=== PATIENT | female | born 1945 | race Caucasian/White ===

== ENCOUNTER 2016-12-27 13:00 | Emergency (ER) | payer MEDICARE, MEDICAID ==
[~2016-12-27] VITALS: Ht 154.9 cm; Wt 110.0 kg
[~2016-12-27 13:00] MED LIST: ASPI81 PO; DIVA500T35 PO; DSS100 PO; LITH300C3 PO; LURA80 PO; PANT40TA25 PO; TERB12CR3 TP; TOPI25 PO; VITAD1000 PO
[2016-12-27 13:24] VITALS: BP 122/62
[2016-12-27 13:41] LABS: BASOPHILS # (AUTO) 0.07 K/uL (0.00-0.20); BASOPHILS % (AUTO) 1.2 % (0.0-2.0); EOSINOPHILS # (AUTO) 0.15 K/uL (0.00-0.70); EOSINOPHILS % (AUTO) 2.65 % (1.0-6.0); HEMATOCRIT 51.8 % (36-46); HEMOGLOBIN 16.7 g/dL (12.0-16.0); LYMPHOCYTES % (AUTO) 17.9 % (22.0-44.0); MEAN CORPUSCULAR HEMOGLOBIN 30.8 pg (26.0-34.0); MEAN CORPUSCULAR HGB CONC 32.3 G/dL (31.0-37.0); MEAN CORPUSCULAR VOLUME 95 fL (80-100); MONOCYTES # (AUTO) 0.6 K/uL (0.1-1.0); MONOCYTES % (AUTO) 9.7 % (2.0-9.0); NEUTROPHILS % (AUTO) 68.6 % (40.0-70.0); PLATELET COUNT (AUTO) 194 K/uL (150-450); RED BLOOD CELL COUNT(AUTO) 5.42 MIL/uL (4.00-5.20); RED CELL DISTRIBUTION WIDTH 14.6 % (11.5-14.5); WHITE BLOOD COUNT (AUTO) 5.8 K/uL (4.5-11.0)
[2016-12-27 14:01] LABS: ANION GAP 9 mmol/L (8-16); CALCIUM, TOTAL 8.8 mg/dL (8.8-10.5); CARBON DIOXIDE 29 mmol/L (22-29); CHLORIDE 104 mmol/L (98-107); CREATININE 0.83 mg/dL (0.60-1.30); GLOMERULAR FILTR. RATE CALC > 60 mL/min (>60); SODIUM SERUM 142 mmol/L (136-145); UREA NITROGEN, BLOOD 12 mg/dL (7-18)
[2016-12-27] MEDS ORDERED: ALBU8HFA IH (14:01)
[2016-12-27 14:06] LABS: ALANINE AMINOTRANSFERASE 17 U/L (12-78); ALBUMIN 3.4 g/dL (3.4-5.0); ASPARTATE AMINOTRANSFERASE 17 U/L (15-37); BILIRUBIN,TOTAL 0.7 mg/dL (0.1-1.0); TOTAL PROTEIN, SERUM 8.6 g/dL (6.4-8.2)
== END 2016-12-27 16:17 | disposition home or self-care (01) ==
LOC: EMS 13:02
DX: F41.9 Anxiety disorder, unspecified (principal); F31.9 Bipolar disorder, unspecified; I50.9 Heart failure, unspecified; F17.210 Nicotine dependence, cigarettes, uncomplicated; Z88.8 Allergy status to other drugs, medicaments and biological substances
CPT/HCPCS: 36415; 80053; 85025; 99284; G0480

== ENCOUNTER 2016-12-31 21:20 | Inpatient (IN) | payer OTHER, MEDICAID ==
[~2016-12-31] VITALS: Ht 154.9 cm; Wt 262.2 kg
[~2016-12-31 21:20] MED LIST changes: +ALBU8HFA IH; -ASPI81 PO; -DIVA500T35 PO; -DSS100 PO; -LITH300C3 PO; -LURA80 PO; -PANT40TA25 PO; -TERB12CR3 TP; -TOPI25 PO; -VITAD1000 PO
[2016-12-31 21:53] LABS: BASOPHILS % (AUTO) 0.3 % (0.0-2.0); EOSINOPHILS % (AUTO) 1.9 % (1.0-6.0); HEMATOCRIT 47.9 % (36-46); LYMPHOCYTES # (AUTO) 1.7 K/uL (1.0-4.8); LYMPHOCYTES % (AUTO) 24.6 % (22.0-44.0); MEAN CORPUSCULAR HEMOGLOBIN 31.1 pg (26.0-34.0); MEAN CORPUSCULAR HGB CONC 33.3 G/dL (31.0-37.0); MEAN CORPUSCULAR VOLUME 94 fL (80-100); MONOCYTES # (AUTO) 0.6 K/uL (0.1-1.0); MONOCYTES % (AUTO) 9.1 % (2.0-9.0); NEUTROPHILS # (AUTO) 4.5 K/uL (1.8-7.7); NEUTROPHILS % (AUTO) 64.1 % (40.0-70.0); PLATELET COUNT (AUTO) 219 K/uL (150-450); RED BLOOD CELL COUNT(AUTO) 5.13 MIL/uL (4.00-5.20); RED CELL DISTRIBUTION WIDTH 13.5 % (11.5-14.5)
[2016-12-31 22:02] LABS: GLUCOSE,POINT OF CARE 125 MG/DL (70-110)
[2016-12-31 22:07] LABS: ALANINE AMINOTRANSFERASE 19 U/L (12-78); ALBUMIN 3.3 g/dL (3.4-5.0); ANION GAP 6 mmol/L (8-16); ASPARTATE AMINOTRANSFERASE 24 U/L (15-37); BILIRUBIN,TOTAL 0.6 mg/dL (0.1-1.0); CALCIUM, TOTAL 8.8 mg/dL (8.8-10.5); CARBON DIOXIDE 32 mmol/L (22-29); CHLORIDE 103 mmol/L (98-107); CREATININE 1.09 mg/dL (0.60-1.30); GLOMERULAR FILTR. RATE CALC 49 mL/min (>60); POTASSIUM 4.1 mmol/L (3.5-5.1); SODIUM SERUM 141 mmol/L (136-145); TOTAL PROTEIN, SERUM 7.8 g/dL (6.4-8.2); UREA NITROGEN, BLOOD 14 mg/dL (7-18)
[2016-12-31] MEDS ORDERED: HALOPERIDOL 5 MG TABLET PO ONE (22:15)
[2016-12-31] MEDS ORDERED: LORazepam 2 MG TABLET PO ONE (22:15)
[2016-12-31] MEDS ORDERED: ChlorproMAZINE HCL 50 MG TABLET PO PRN (22:30)
[2016-12-31] MEDS ORDERED: ZOLPIDEM TARTRATE 10 MG TABLET PO PRN (22:30)
[2016-12-31 23:35] LABS: CHOL/HDL RATIO 3.8 (3.9-5.7); THYROID STIMULATING HORMONE 2.95 uIU/mL (0.36-3.74)
[2017-01-01 03:38] VITALS: BP 137/80
[2017-01-01 08:36] VITALS: BP 133/81
[2017-01-01] MEDS ORDERED: BACITRACIN 28.4 GM OINTMENT TP PRN (09:00)
[2017-01-01] MEDS ORDERED: MAGNESIUM HYDROXIDE SUSPENSION 30 ML UDCUP PO PRN (09:00)
[2017-01-01] MEDS ORDERED: ONDANSETRON HCL 4 MG TABLET PO PRN (09:00)
[2017-01-01] MEDS ORDERED: DEXTROSE 50%-WATER 25 GM/50 ML SYRINGE IVP PRN (09:00)
[2017-01-01] MEDS ORDERED: CloNIDine HCL 0.1 MG TABLET PO PRN (09:00)
[2017-01-01] MEDS ORDERED: MAG HYDROX/AL HYDROX/SIMETH ES 30 ML SUSPENSION UDCUP PO PRN (09:00)
[2017-01-01] MEDS ORDERED: LOPERAMIDE HCL 2 MG CAPSULE PO PRN (09:00)
[2017-01-01] MEDS ORDERED: BENZOCAINE/MENTHOL LOZENGE [8 LOZENGES/PACKET] MM PRN (09:00)
[2017-01-01] MEDS ORDERED: ACETAMINOPHEN 325 MG TABLET PO PRN (09:00)
[2017-01-01] MEDS ORDERED: ALBUTEROL SULFATE HFA 90 MCG/PUFF 8 GM INHALER IH PRN (09:00)
[2017-01-01] MEDS: OMEPRAZOLE 20 MG CAPSULE PO SCH (09:50)
[2017-01-01] MEDS: DIVALPROEX SODIUM 500 MG DR TABLET PO SCH ×2 (09:50→17:07)
[2017-01-01] MEDS: NYSTATIN 15 GM POWDER BOTTLE TP SCH ×2 (09:50→20:30)
[2017-01-01] MEDS: DOCUSATE SODIUM 100 MG CAPSULE PO SCH (09:50)
[2017-01-01] MEDS: CEPHALEXIN MONOHYDRATE 500 MG CAPSULE PO SCH ×3 (09:50→17:07)
[2017-01-01] MEDS: CHOLECALCIFEROL (VIT D3) 1,000 UNITS TABLET PO SCH (09:50)
[2017-01-01 11:23] LABS: GLUCOSE,POINT OF CARE 183 MG/DL (70-110)
[2017-01-01] MEDS: INSULIN ASPART 100 UNITS/ML SQ PRN ×2 (11:29→21:30)
[2017-01-01 16:47] VITALS: BP 116/67
[2017-01-01] MEDS: MetFORMIN HCL 500 MG TABLET PO SCH (17:07)
[2017-01-01 17:12] LABS: GLUCOSE,POINT OF CARE 95 MG/DL (70-110)
[2017-01-01] MEDS: ASENAPINE 5 MG SUBLINGUAL TABLET SL SCH (20:30)
[2017-01-01 20:37] LABS: GLUCOSE COMMENT 1 Received Meds; GLUCOSE,POINT OF CARE 148 MG/DL (70-110)
[2017-01-01] MEDS ORDERED: TOPIRAMATE 25 MG TABLET PO SCH (21:00)
[2017-01-02 02:32] VITALS: BP 126/83
[2017-01-02 05:57] LABS: GLUCOSE,POINT OF CARE 132 MG/DL (70-110)
[2017-01-02] MEDS: MetFORMIN HCL 500 MG TABLET PO SCH ×2 (06:41→17:20)
[2017-01-02] MEDS: NYSTATIN 15 GM POWDER BOTTLE TP SCH ×2 (08:18→17:20)
[2017-01-02] MEDS: OMEPRAZOLE 20 MG CAPSULE PO SCH (08:19)
[2017-01-02] MEDS: DOCUSATE SODIUM 100 MG CAPSULE PO SCH (08:19)
[2017-01-02] MEDS: CHOLECALCIFEROL (VIT D3) 1,000 UNITS TABLET PO SCH (08:19)
[2017-01-02] MEDS: DIVALPROEX SODIUM 500 MG DR TABLET PO SCH ×2 (08:19→17:20)
[2017-01-02] MEDS: CEPHALEXIN MONOHYDRATE 500 MG CAPSULE PO SCH ×3 (08:19→17:21)
[2017-01-02 08:31] VITALS: BP 138/92
[2017-01-02 11:02] LABS: GLUCOSE,POINT OF CARE 112 MG/DL (70-110)
[2017-01-02 16:27] VITALS: BP 142/76
[2017-01-02 17:28] LABS: GLUCOSE,POINT OF CARE 119 MG/DL (70-110)
[2017-01-02] MEDS: ASENAPINE 5 MG SUBLINGUAL TABLET SL SCH (20:03)
[2017-01-02] MEDS: TOPIRAMATE 100 MG TABLET PO SCH (20:03)
[2017-01-02 20:43] LABS: GLUCOSE,POINT OF CARE 153 MG/DL (70-110)
[2017-01-02] MEDS: INSULIN ASPART 100 UNITS/ML SQ PRN (21:45)
[2017-01-03 00:10] VITALS: BP 120/72
[2017-01-03] MEDS: IBUPROFEN 600 MG TABLET PO PRN ×2 (00:16→09:22)
[2017-01-03 05:57] LABS: GLUCOSE,POINT OF CARE 130 MG/DL (70-110)
[2017-01-03] MEDS: MetFORMIN HCL 500 MG TABLET PO SCH ×2 (06:40→16:47)
[2017-01-03] MEDS: CEPHALEXIN MONOHYDRATE 500 MG CAPSULE PO SCH ×3 (08:04→16:47)
[2017-01-03] MEDS: CHOLECALCIFEROL (VIT D3) 1,000 UNITS TABLET PO SCH (08:04)
[2017-01-03] MEDS: OMEPRAZOLE 20 MG CAPSULE PO SCH (08:04)
[2017-01-03] MEDS: DOCUSATE SODIUM 100 MG CAPSULE PO SCH (08:05)
[2017-01-03] MEDS: NYSTATIN 15 GM POWDER BOTTLE TP SCH ×2 (08:05→16:47)
[2017-01-03] MEDS: DIVALPROEX SODIUM 500 MG DR TABLET PO SCH ×2 (08:05→16:47)
[2017-01-03 08:22] VITALS: BP 142/88
[2017-01-03] MEDS: LORazepam 2 MG TABLET PO PRN (09:22)
[2017-01-03 10:57] LABS: GLUCOSE,POINT OF CARE 129 MG/DL (70-110)
[2017-01-03 17:23] VITALS: BP 142/81
[2017-01-03] MEDS: TOPIRAMATE 100 MG TABLET PO SCH (21:24)
[2017-01-03] MEDS: ASENAPINE 5 MG SUBLINGUAL TABLET SL SCH (21:24)
[2017-01-03 23:12] LABS: GLUCOSE,POINT OF CARE 130 MG/DL (70-110)
[2017-01-04 06:17] LABS: GLUCOSE,POINT OF CARE 123 MG/DL (70-110)
[2017-01-04] MEDS: MetFORMIN HCL 500 MG TABLET PO SCH ×2 (06:49→17:23)
[2017-01-04 07:03] VITALS: BP 117/69
[2017-01-04 08:00] VITALS: BP 140/81
[2017-01-04] MEDS: NYSTATIN 15 GM POWDER BOTTLE TP SCH ×2 (09:00→17:16)
[2017-01-04] MEDS: CARVEDILOL 3.125 MG TABLET PO SCH (09:16)
[2017-01-04] MEDS: DOCUSATE SODIUM 100 MG CAPSULE PO SCH (09:16)
[2017-01-04] MEDS: CHOLECALCIFEROL (VIT D3) 1,000 UNITS TABLET PO SCH (09:17)
[2017-01-04] MEDS: OMEPRAZOLE 20 MG CAPSULE PO SCH (09:17)
[2017-01-04] MEDS: DIVALPROEX SODIUM 500 MG DR TABLET PO SCH ×2 (09:17→17:15)
[2017-01-04] MEDS: CEPHALEXIN MONOHYDRATE 500 MG CAPSULE PO SCH ×3 (09:18→17:15)
[2017-01-04] MEDS: INSULIN ASPART 100 UNITS/ML SQ PRN ×2 (11:35→21:24)
[2017-01-04 11:39] LABS: GLUCOSE,POINT OF CARE 97 MG/DL (70-110)
[2017-01-04] MEDS: IBUPROFEN 600 MG TABLET PO PRN (12:40)
[2017-01-04 17:00] VITALS: BP 138/92
[2017-01-04 17:27] LABS: GLUCOSE,POINT OF CARE 113 MG/DL (70-110)
[2017-01-04] MEDS: TOPIRAMATE 100 MG TABLET PO SCH (21:08)
[2017-01-04] MEDS: ASENAPINE 5 MG SUBLINGUAL TABLET SL SCH (21:08)
[2017-01-04 21:22] LABS: GLUCOSE COMMENT 1 Received Meds; GLUCOSE,POINT OF CARE 121 MG/DL (70-110)
[2017-01-05 06:12] LABS: GLUCOSE,POINT OF CARE 113 MG/DL (70-110)
[2017-01-05 06:29] VITALS: BP 137/90
[2017-01-05] MEDS: MetFORMIN HCL 500 MG TABLET PO SCH ×2 (06:53→17:14)
[2017-01-05 08:30] VITALS: BP 147/88
[2017-01-05] MEDS: NYSTATIN 15 GM POWDER BOTTLE TP SCH ×2 (09:00→17:00)
[2017-01-05] MEDS: CARVEDILOL 3.125 MG TABLET PO SCH (09:41)
[2017-01-05] MEDS: CEPHALEXIN MONOHYDRATE 500 MG CAPSULE PO SCH ×3 (09:41→16:12)
[2017-01-05] MEDS: DIVALPROEX SODIUM 500 MG DR TABLET PO SCH ×2 (09:41→16:05)
[2017-01-05] MEDS: OMEPRAZOLE 20 MG CAPSULE PO SCH (09:41)
[2017-01-05] MEDS: DOCUSATE SODIUM 100 MG CAPSULE PO SCH (09:41)
[2017-01-05] MEDS: CHOLECALCIFEROL (VIT D3) 1,000 UNITS TABLET PO SCH (09:41)
[2017-01-05] MEDS: LORazepam 2 MG TABLET PO PRN (16:05)
[2017-01-05 16:24] VITALS: BP 124/71
[2017-01-05 16:44] LABS: GLUCOSE COMMENT 1 Received Meds; GLUCOSE,POINT OF CARE 128 MG/DL (70-110)
[2017-01-05] MEDS: TOPIRAMATE 100 MG TABLET PO SCH (20:04)
[2017-01-05] MEDS: ASENAPINE 5 MG SUBLINGUAL TABLET SL SCH (20:04)
[2017-01-06 05:58] LABS: GLUCOSE,POINT OF CARE 128 MG/DL (70-110)
[2017-01-06] MEDS: MetFORMIN HCL 500 MG TABLET PO SCH ×2 (07:18→17:30)
[2017-01-06] MEDS: NYSTATIN 15 GM POWDER BOTTLE TP SCH ×2 (08:07→17:05)
[2017-01-06] MEDS: DIVALPROEX SODIUM 500 MG DR TABLET PO SCH ×2 (08:07→16:11)
[2017-01-06] MEDS: OMEPRAZOLE 20 MG CAPSULE PO SCH (08:07)
[2017-01-06] MEDS: CARVEDILOL 3.125 MG TABLET PO SCH (08:07)
[2017-01-06] MEDS: DOCUSATE SODIUM 100 MG CAPSULE PO SCH (08:07)
[2017-01-06] MEDS: CHOLECALCIFEROL (VIT D3) 1,000 UNITS TABLET PO SCH (08:07)
[2017-01-06] MEDS: CEPHALEXIN MONOHYDRATE 500 MG CAPSULE PO SCH ×3 (08:07→16:11)
[2017-01-06 08:55] VITALS: BP 127/88
[2017-01-06] MEDS: LORazepam 2 MG TABLET PO PRN (16:11)
[2017-01-06 16:18] LABS: GLUCOSE COMMENT 1 Received Meds; GLUCOSE,POINT OF CARE 97 MG/DL (70-110)
[2017-01-06] MEDS: ASENAPINE 5 MG SUBLINGUAL TABLET SL SCH (21:00)
[2017-01-06] MEDS: TOPIRAMATE 100 MG TABLET PO SCH (21:00)
[2017-01-06 22:21] VITALS: BP 144/86
[2017-01-07 06:29] VITALS: BP 142/82
[2017-01-07] MEDS: MetFORMIN HCL 500 MG TABLET PO SCH ×2 (07:23→17:03)
[2017-01-07 07:58] LABS: GLUCOSE COMMENT 1 Received Meds; GLUCOSE,POINT OF CARE 102 MG/DL (70-110)
[2017-01-07] MEDS: DOCUSATE SODIUM 100 MG CAPSULE PO SCH (08:15)
[2017-01-07] MEDS: DIVALPROEX SODIUM 500 MG DR TABLET PO SCH ×2 (08:15→17:03)
[2017-01-07] MEDS: CARVEDILOL 3.125 MG TABLET PO SCH (08:15)
[2017-01-07] MEDS: MESALAMINE 400 MG DR CAPSULE PO SCH (08:15)
[2017-01-07] MEDS: CHOLECALCIFEROL (VIT D3) 1,000 UNITS TABLET PO SCH (08:15)
[2017-01-07] MEDS: CEPHALEXIN MONOHYDRATE 500 MG CAPSULE PO SCH ×3 (08:16→17:03)
[2017-01-07 08:35] VITALS: BP 134/98
[2017-01-07] MEDS: NYSTATIN 15 GM POWDER BOTTLE TP SCH ×2 (10:05→17:03)
[2017-01-07] MEDS: OMEPRAZOLE 20 MG CAPSULE PO SCH (10:05)
[2017-01-07 16:34] VITALS: BP 123/67
[2017-01-07] MEDS: TOPIRAMATE 100 MG TABLET PO SCH (20:42)
[2017-01-07] MEDS: ASENAPINE 5 MG SUBLINGUAL TABLET SL SCH (20:42)
[2017-01-08 05:00] LABS: GLUCOSE,POINT OF CARE 120 MG/DL (70-110)
[2017-01-08 06:46] VITALS: BP 138/67
[2017-01-08] MEDS: MetFORMIN HCL 500 MG TABLET PO SCH ×2 (07:30→16:47)
[2017-01-08 08:29] VITALS: BP 128/78
[2017-01-08] MEDS: MESALAMINE 400 MG DR CAPSULE PO SCH (10:16)
[2017-01-08] MEDS: CHOLECALCIFEROL (VIT D3) 1,000 UNITS TABLET PO SCH (10:16)
[2017-01-08] MEDS: DIVALPROEX SODIUM 500 MG DR TABLET PO SCH ×2 (10:16→16:47)
[2017-01-08] MEDS: CEPHALEXIN MONOHYDRATE 500 MG CAPSULE PO SCH ×3 (10:17→16:48)
[2017-01-08] MEDS: DOCUSATE SODIUM 100 MG CAPSULE PO SCH (10:17)
[2017-01-08] MEDS: CARVEDILOL 3.125 MG TABLET PO SCH (10:17)
[2017-01-08] MEDS: NYSTATIN 15 GM POWDER BOTTLE TP SCH ×2 (10:23→16:48)
[2017-01-08] MEDS: OMEPRAZOLE 20 MG CAPSULE PO SCH (10:23)
[2017-01-08 11:14] LABS: GLUCOSE,POINT OF CARE 126 MG/DL (70-110)
[2017-01-08 17:12] LABS: GLUCOSE,POINT OF CARE 101 MG/DL (70-110)
[2017-01-08 19:48] VITALS: BP 131/79
[2017-01-08] MEDS: TOPIRAMATE 100 MG TABLET PO SCH (20:19)
[2017-01-08] MEDS: ASENAPINE 5 MG SUBLINGUAL TABLET SL SCH (20:19)
[2017-01-09 03:20] VITALS: BP 157/98
[2017-01-09 06:09] LABS: GLUCOSE,POINT OF CARE 126 MG/DL (70-110)
[2017-01-09] MEDS: MetFORMIN HCL 500 MG TABLET PO SCH ×2 (07:02→17:23)
[2017-01-09 08:10] VITALS: BP 143/91
[2017-01-09] MEDS: MESALAMINE 400 MG DR CAPSULE PO SCH (09:11)
[2017-01-09] MEDS: DOCUSATE SODIUM 100 MG CAPSULE PO SCH (09:11)
[2017-01-09] MEDS: CHOLECALCIFEROL (VIT D3) 1,000 UNITS TABLET PO SCH (09:11)
[2017-01-09] MEDS: OMEPRAZOLE 20 MG CAPSULE PO SCH (09:11)
[2017-01-09] MEDS: CEPHALEXIN MONOHYDRATE 500 MG CAPSULE PO SCH ×2 (09:11→13:04)
[2017-01-09] MEDS: CARVEDILOL 3.125 MG TABLET PO SCH (09:11)
[2017-01-09] MEDS: DIVALPROEX SODIUM 500 MG DR TABLET PO SCH ×2 (09:11→17:13)
[2017-01-09] MEDS: NYSTATIN 15 GM POWDER BOTTLE TP SCH ×2 (09:12→17:13)
[2017-01-09] MEDS ORDERED: SULFAMETHOX/TRIMETH DS 800-160 MG/TABLET PO SCH (13:45)
[2017-01-09] MEDS ORDERED: CLINDAMYCIN HCL 150 MG CAPSULE PO SCH (13:45)
[2017-01-09] MEDS: INSULIN ASPART 100 UNITS/ML SQ PRN (17:17)
[2017-01-09 17:18] LABS: GLUCOSE COMMENT 1 Received Meds; GLUCOSE,POINT OF CARE 149 MG/DL (70-110)
[2017-01-09] MEDS: CLINDAMYCIN HCL 150 MG CAPSULE PO SCH (18:00)
[2017-01-09 19:07] VITALS: BP 140/93
[2017-01-09] MEDS: SULFAMETHOX/TRIMETH DS 800-160 MG/TABLET PO SCH (20:32)
[2017-01-09] MEDS: ASENAPINE 5 MG SUBLINGUAL TABLET SL SCH (20:32)
[2017-01-09] MEDS: TOPIRAMATE 100 MG TABLET PO SCH (20:32)
[2017-01-09] MEDS: HYDROCORTISONE 1% 30 GM CREAM TP PRN (20:33)
[2017-01-10] MEDS: CLINDAMYCIN HCL 150 MG CAPSULE PO SCH ×4 (00:35→18:45)
[2017-01-10 05:48] LABS: GLUCOSE COMMENT 1 FASTING; GLUCOSE,POINT OF CARE 134 MG/DL (70-110)
[2017-01-10 06:28] VITALS: BP 147/94
[2017-01-10] MEDS: MetFORMIN HCL 500 MG TABLET PO SCH ×2 (07:20→18:44)
[2017-01-10 08:30] VITALS: BP 145/82
[2017-01-10] MEDS: MESALAMINE 400 MG DR CAPSULE PO SCH (09:12)
[2017-01-10] MEDS: DIVALPROEX SODIUM 500 MG DR TABLET PO SCH ×2 (09:13→16:45)
[2017-01-10] MEDS: DOCUSATE SODIUM 100 MG CAPSULE PO SCH (09:13)
[2017-01-10] MEDS: OMEPRAZOLE 20 MG CAPSULE PO SCH (09:13)
[2017-01-10] MEDS: CHOLECALCIFEROL (VIT D3) 1,000 UNITS TABLET PO SCH (09:13)
[2017-01-10] MEDS: CARVEDILOL 3.125 MG TABLET PO SCH (09:13)
[2017-01-10] MEDS: SULFAMETHOX/TRIMETH DS 800-160 MG/TABLET PO SCH ×2 (09:13→20:27)
[2017-01-10] MEDS: NYSTATIN 15 GM POWDER BOTTLE TP SCH ×2 (09:13→16:45)
[2017-01-10 16:18] LABS: GLUCOSE COMMENT 1 Received Meds; GLUCOSE,POINT OF CARE 156 MG/DL (70-110)
[2017-01-10] MEDS: INSULIN ASPART 100 UNITS/ML SQ PRN (16:59)
[2017-01-10] MEDS: TOPIRAMATE 100 MG TABLET PO SCH (20:27)
[2017-01-10] MEDS: ASENAPINE 5 MG SUBLINGUAL TABLET SL SCH (20:27)
[2017-01-10 20:42] VITALS: BP 142/86
[2017-01-11] MEDS: CLINDAMYCIN HCL 150 MG CAPSULE PO SCH ×4 (01:30→18:45)
[2017-01-11 01:40] VITALS: BP 122/57
[2017-01-11] MEDS: HYDROCORTISONE 1% 30 GM CREAM TP PRN (03:38)
[2017-01-11 05:37] LABS: GLUCOSE COMMENT 1 Received Meds; GLUCOSE,POINT OF CARE 113 MG/DL (70-110)
[2017-01-11] MEDS: MetFORMIN HCL 500 MG TABLET PO SCH ×2 (08:03→17:00)
[2017-01-11 08:45] VITALS: BP 115/76
[2017-01-11] MEDS: NYSTATIN 15 GM POWDER BOTTLE TP SCH ×2 (09:00→17:00)
[2017-01-11] MEDS: SULFAMETHOX/TRIMETH DS 800-160 MG/TABLET PO SCH ×2 (09:20→20:48)
[2017-01-11] MEDS: CARVEDILOL 3.125 MG TABLET PO SCH (09:21)
[2017-01-11] MEDS: DOCUSATE SODIUM 100 MG CAPSULE PO SCH (09:21)
[2017-01-11] MEDS: MESALAMINE 400 MG DR CAPSULE PO SCH (09:21)
[2017-01-11] MEDS: OMEPRAZOLE 20 MG CAPSULE PO SCH (09:22)
[2017-01-11] MEDS: CHOLECALCIFEROL (VIT D3) 1,000 UNITS TABLET PO SCH (09:23)
[2017-01-11] MEDS: ASENAPINE 5 MG SUBLINGUAL TABLET SL SCH ×2 (09:23→20:48)
[2017-01-11 16:32] LABS: GLUCOSE,POINT OF CARE 141 MG/DL (70-110)
[2017-01-11] MEDS: IBUPROFEN 600 MG TABLET PO PRN (16:58)
[2017-01-11 17:02] VITALS: BP 129/69
[2017-01-11] MEDS: INSULIN ASPART 100 UNITS/ML SQ PRN (17:30)
[2017-01-11 18:02] VITALS: BP 118/62
[2017-01-11] MEDS: TOPIRAMATE 100 MG TABLET PO SCH (20:48)
[2017-01-12] MEDS: CLINDAMYCIN HCL 150 MG CAPSULE PO SCH ×4 (01:00→19:01)
[2017-01-12 03:39] VITALS: BP 110/62
[2017-01-12] MEDS: IBUPROFEN 600 MG TABLET PO PRN ×2 (03:42→19:20)
[2017-01-12 05:47] LABS: GLUCOSE,POINT OF CARE 156 MG/DL (70-110)
[2017-01-12] MEDS: HYDROCORTISONE 1% 30 GM CREAM TP PRN ×2 (06:29→19:20)
[2017-01-12] MEDS: INSULIN ASPART 100 UNITS/ML SQ PRN (07:04)
[2017-01-12] MEDS: MetFORMIN HCL 500 MG TABLET PO SCH ×2 (07:14→16:51)
[2017-01-12] MEDS: DOCUSATE SODIUM 100 MG CAPSULE PO SCH (08:26)
[2017-01-12] MEDS: CHOLECALCIFEROL (VIT D3) 1,000 UNITS TABLET PO SCH (08:26)
[2017-01-12] MEDS: OMEPRAZOLE 20 MG CAPSULE PO SCH (08:26)
[2017-01-12] MEDS: ASENAPINE 5 MG SUBLINGUAL TABLET SL SCH ×2 (08:27→20:28)
[2017-01-12] MEDS: SULFAMETHOX/TRIMETH DS 800-160 MG/TABLET PO SCH ×2 (08:28→20:28)
[2017-01-12] MEDS: CARVEDILOL 3.125 MG TABLET PO SCH (08:28)
[2017-01-12] MEDS: MESALAMINE 400 MG DR CAPSULE PO SCH (08:30)
[2017-01-12] MEDS: PETROLATUM,WHITE 71 GM JELLY TP PRN (08:31)
[2017-01-12] MEDS: NYSTATIN 15 GM POWDER BOTTLE TP SCH ×2 (08:31→16:51)
[2017-01-12 08:32] VITALS: BP 119/71
[2017-01-12 16:46] VITALS: BP 116/89
[2017-01-12 16:57] LABS: GLUCOSE COMMENT 1 Received Meds; GLUCOSE,POINT OF CARE 117 MG/DL (70-110)
[2017-01-12 19:22] VITALS: BP 123/75
[2017-01-12] MEDS: TOPIRAMATE 100 MG TABLET PO SCH (20:28)
[2017-01-13 04:56] VITALS: BP 129/78
[2017-01-13 05:37] LABS: GLUCOSE COMMENT 1 Received Meds; GLUCOSE,POINT OF CARE 109 MG/DL (70-110)
[2017-01-13] MEDS: CLINDAMYCIN HCL 150 MG CAPSULE PO SCH ×4 (06:25→17:47)
[2017-01-13] MEDS: MetFORMIN HCL 500 MG TABLET PO SCH ×2 (07:02→17:46)
[2017-01-13 08:05] VITALS: BP 135/79
[2017-01-13] MEDS: OMEPRAZOLE 20 MG CAPSULE PO SCH (09:08)
[2017-01-13] MEDS: DOCUSATE SODIUM 100 MG CAPSULE PO SCH (09:08)
[2017-01-13] MEDS: NYSTATIN 15 GM POWDER BOTTLE TP SCH ×2 (09:08→20:13)
[2017-01-13] MEDS: CHOLECALCIFEROL (VIT D3) 1,000 UNITS TABLET PO SCH (09:08)
[2017-01-13] MEDS: MESALAMINE 400 MG DR CAPSULE PO SCH (09:09)
[2017-01-13] MEDS: ASENAPINE 5 MG SUBLINGUAL TABLET SL SCH ×2 (09:09→20:48)
[2017-01-13] MEDS: ASPIRIN 81 MG EC TABLET PO SCH (09:10)
[2017-01-13] MEDS: CARVEDILOL 3.125 MG TABLET PO SCH (09:10)
[2017-01-13] MEDS: SULFAMETHOX/TRIMETH DS 800-160 MG/TABLET PO SCH ×2 (09:11→20:47)
[2017-01-13 16:37] VITALS: BP 112/73
[2017-01-13 16:37] LABS: GLUCOSE,POINT OF CARE 115 MG/DL (70-110)
[2017-01-13] MEDS: TOPIRAMATE 100 MG TABLET PO SCH (20:47)
[2017-01-14] MEDS: CLINDAMYCIN HCL 150 MG CAPSULE PO SCH ×4 (00:42→17:10)
[2017-01-14 03:38] VITALS: BP 133/66
[2017-01-14 06:12] LABS: GLUCOSE,POINT OF CARE 96 MG/DL (70-110)
[2017-01-14] MEDS: MetFORMIN HCL 500 MG TABLET PO SCH ×2 (07:22→17:10)
[2017-01-14] MEDS: CARVEDILOL 3.125 MG TABLET PO SCH (09:00)
[2017-01-14] MEDS: DOCUSATE SODIUM 100 MG CAPSULE PO SCH (09:05)
[2017-01-14] MEDS: SULFAMETHOX/TRIMETH DS 800-160 MG/TABLET PO SCH ×2 (09:05→20:27)
[2017-01-14] MEDS: MESALAMINE 400 MG DR CAPSULE PO SCH (09:06)
[2017-01-14] MEDS: ASPIRIN 81 MG EC TABLET PO SCH (09:06)
[2017-01-14] MEDS: CHOLECALCIFEROL (VIT D3) 1,000 UNITS TABLET PO SCH (09:08)
[2017-01-14] MEDS: OMEPRAZOLE 20 MG CAPSULE PO SCH (09:08)
[2017-01-14] MEDS: ASENAPINE 5 MG SUBLINGUAL TABLET SL SCH ×2 (09:08→20:27)
[2017-01-14 09:14] VITALS: BP 97/54
[2017-01-14] MEDS: IBUPROFEN 600 MG TABLET PO PRN (09:14)
[2017-01-14] MEDS: NYSTATIN 15 GM POWDER BOTTLE TP SCH ×2 (10:07→17:09)
[2017-01-14 10:42] VITALS: BP 128/71
[2017-01-14 16:44] LABS: GLUCOSE COMMENT 1 Received Meds; GLUCOSE,POINT OF CARE 124 MG/DL (70-110)
[2017-01-14] MEDS: PETROLATUM,WHITE 71 GM JELLY TP PRN (17:21)
[2017-01-14 18:59] VITALS: BP 123/76
[2017-01-14] MEDS: TOPIRAMATE 100 MG TABLET PO SCH (20:27)
[2017-01-15] MEDS: CLINDAMYCIN HCL 150 MG CAPSULE PO SCH ×4 (00:41→17:39)
[2017-01-15 05:35] LABS: GLUCOSE COMMENT 1 Received Meds; GLUCOSE,POINT OF CARE 112 MG/DL (70-110)
[2017-01-15 06:54] VITALS: BP 130/78
[2017-01-15 07:05] VITALS: BP 127/71
[2017-01-15] MEDS: MetFORMIN HCL 500 MG TABLET PO SCH ×2 (07:11→17:29)
[2017-01-15] MEDS: MESALAMINE 400 MG DR CAPSULE PO SCH (08:59)
[2017-01-15] MEDS: SULFAMETHOX/TRIMETH DS 800-160 MG/TABLET PO SCH ×2 (08:59→20:43)
[2017-01-15] MEDS: ASPIRIN 81 MG EC TABLET PO SCH (08:59)
[2017-01-15] MEDS: CARVEDILOL 3.125 MG TABLET PO SCH (08:59)
[2017-01-15] MEDS: OMEPRAZOLE 20 MG CAPSULE PO SCH (08:59)
[2017-01-15] MEDS: NYSTATIN 15 GM POWDER BOTTLE TP SCH ×2 (09:00→17:27)
[2017-01-15] MEDS: DOCUSATE SODIUM 100 MG CAPSULE PO SCH (09:00)
[2017-01-15] MEDS: ASENAPINE 5 MG SUBLINGUAL TABLET SL SCH ×2 (09:00→20:43)
[2017-01-15] MEDS: CHOLECALCIFEROL (VIT D3) 1,000 UNITS TABLET PO SCH (09:00)
[2017-01-15] MEDS: PETROLATUM,WHITE 71 GM JELLY TP PRN (09:10)
[2017-01-15 13:07] VITALS: BP 135/86
[2017-01-15] MEDS: IBUPROFEN 600 MG TABLET PO PRN (15:04)
[2017-01-15 17:42] LABS: GLUCOSE,POINT OF CARE 124 MG/DL (70-110)
[2017-01-15 18:52] VITALS: BP 135/81
[2017-01-15] MEDS ORDERED: TOPIRAMATE 100 MG TABLET PO SCH (21:00)
[2017-01-15] MEDS ORDERED: CEPHALEXIN MONOHYDRATE 500 MG CAPSULE PO ONE (22:30)
[2017-01-15] MEDS ORDERED: DOXYCYCLINE 100 MG CAPSULE PO ONE (22:30)
[2017-01-16 06:27] VITALS: BP 122/94
[2017-01-16 06:28] LABS: GLUCOSE,POINT OF CARE 98 MG/DL (70-110)
[2017-01-16] MEDS: MetFORMIN HCL 500 MG TABLET PO SCH (06:57)
[2017-01-16 08:15] VITALS: BP 104/54
[2017-01-16] MEDS ORDERED: TERBINAFINE HCL 1% 30 GM CREAM TP SCH (09:00)
[2017-01-16] MEDS ORDERED: DOXYCYCLINE 100 MG CAPSULE PO SCH (09:00)
[2017-01-16] MEDS: CHOLECALCIFEROL (VIT D3) 1,000 UNITS TABLET PO SCH (09:12)
[2017-01-16] MEDS: OMEPRAZOLE 20 MG CAPSULE PO SCH (09:12)
[2017-01-16] MEDS: DOCUSATE SODIUM 100 MG CAPSULE PO SCH (09:12)
[2017-01-16] MEDS: MESALAMINE 400 MG DR CAPSULE PO SCH (09:13)
[2017-01-16] MEDS: CEPHALEXIN MONOHYDRATE 500 MG CAPSULE PO SCH ×2 (09:13→12:23)
[2017-01-16] MEDS: ASENAPINE 5 MG SUBLINGUAL TABLET SL SCH (09:14)
[2017-01-16] MEDS: NYSTATIN 15 GM POWDER BOTTLE TP SCH (09:14)
[2017-01-16] MEDS: ASPIRIN 81 MG EC TABLET PO SCH (09:15)
[2017-01-16] MEDS: CARVEDILOL 3.125 MG TABLET PO SCH (09:15)
[2017-01-16] MEDS ORDERED: OMEP20 PO (12:41)
[2017-01-16] MEDS ORDERED: ASPI-1182 PO (12:41)
[2017-01-16] MEDS ORDERED: NYST15PO3 TP (12:41)
[2017-01-16] MEDS ORDERED: MESA400C2 PO (12:41)
[2017-01-16] MEDS ORDERED: DSS100 PO (12:41)
[2017-01-16] MEDS ORDERED: CARV3 PO (12:41)
[2017-01-16] MEDS ORDERED: VITAD1000 PO (12:41)
[2017-01-16] MEDS ORDERED: TOPI25 PO (12:41)
[2017-01-16] MEDS ORDERED: TERB30CR TP (12:41)
[2017-01-16] MEDS ORDERED: ASEN5TAB6 SL (12:41)
[2017-01-16] MEDS ORDERED: METF500T4 PO (12:41)
[2017-01-16 13:43] VITALS: BP 104/58
[2017-01-16] MEDS ORDERED: CeFAZolin 1 GM/DEXTROSE 50 ML IV SCH (14:00)
[2017-01-16] MEDS ORDERED: TOPIRAMATE 25 MG TABLET PO SCH (21:00)
[2017-01-17] MEDS ORDERED: TOPIRAMATE 25 MG TABLET PO SCH (21:00)
== END 2017-01-16 12:45 | disposition short-term general hospital (02) | DRG 885 ==
LOC: EMS 21:22 → 3EX 23:40
PROVIDERS: ADMIT Psychiatry & Neurology Psychiatry; ATTEND Psychiatry & Neurology Psychiatry
DX: F31.5 Bipolar disorder, current episode depressed, severe, with psychotic features (principal); E11.65 Type 2 diabetes mellitus with hyperglycemia; I50.9 Heart failure, unspecified; L03.115 Cellulitis of right lower limb; E66.01 Morbid (severe) obesity due to excess calories; L03.116 Cellulitis of left lower limb; R45.851 Suicidal ideations; F17.210 Nicotine dependence, cigarettes, uncomplicated; B35.6 Tinea cruris; G47.30 Sleep apnea, unspecified; R21 Rash and other nonspecific skin eruption; K21.9 Gastro-esophageal reflux disease without esophagitis; J44.9 Chronic obstructive pulmonary disease, unspecified; E55.9 Vitamin D deficiency, unspecified; K59.00 Constipation, unspecified; G47.00 Insomnia, unspecified; R26.9 Unspecified abnormalities of gait and mobility; B35.3 Tinea pedis; R00.0 Tachycardia, unspecified; R51 Headache; I25.10 Atherosclerotic heart disease of native coronary artery without angina pectoris; B35.4 Tinea corporis; Z91.19 Patient's noncompliance with other medical treatment and regimen; Z56.0 Unemployment, unspecified; Z91.041 Radiographic dye allergy status; Z79.899 Other long term (current) drug therapy; Z68.45 Body mass index [BMI] 70 or greater, adult; Z99.3 Dependence on wheelchair
CPT/HCPCS: 82962; 83036; 84439; 84443; 93970; 97161; 97165; 99285; G0480; J0690; J3535

== ENCOUNTER 2017-01-16 14:22 | Inpatient (IN) | payer MEDICARE, MEDICAID ==
[~2017-01-16] VITALS: Ht 154.9 cm; Wt 118.0 kg
[2017-01-16 14:04] VITALS: BP 104/58
[~2017-01-16 14:22] MED LIST changes: +ASEN5TAB6 SL; +ASPI-1182 PO; +CARV3 PO; +DSS100 PO; +MESA400C2 PO; +METF500T4 PO; +NYST15PO3 TP; +OMEP20 PO; +TERB30CR TP; +TOPI25 PO; +VITAD1000 PO
[2017-01-16 15:10] VITALS: BP 128/50
[2017-01-16] MEDS ORDERED: SODIUM CHLORIDE 0.9% 1,000 ML IV ONE (16:15)
[2017-01-16] MEDS ORDERED: CloNIDine HCL 0.1 MG TABLET PO PRN (16:30)
[2017-01-16] MEDS ORDERED: BENZOCAINE/MENTHOL LOZENGE [8 LOZENGES/PACKET] MM PRN (16:30)
[2017-01-16] MEDS ORDERED: ONDANSETRON HCL 4 MG TABLET PO PRN (16:30)
[2017-01-16] MEDS ORDERED: ALBUTEROL SULFATE HFA 90 MCG/PUFF 8 GM INHALER IH PRN (16:30)
[2017-01-16] MEDS ORDERED: LOPERAMIDE HCL 2 MG CAPSULE PO PRN (16:30)
[2017-01-16] MEDS ORDERED: BACITRACIN 28.4 GM OINTMENT TP PRN (16:30)
[2017-01-16] MEDS ORDERED: DEXTROSE 50%-WATER 25 GM/50 ML SYRINGE IVP PRN (16:30)
[2017-01-16] MEDS ORDERED: ACETAMINOPHEN 325 MG TABLET PO PRN (16:30)
[2017-01-16] MEDS ORDERED: ZOLPIDEM TARTRATE 10 MG TABLET PO PRN (16:30)
[2017-01-16] MEDS ORDERED: PETROLATUM,WHITE 71 GM JELLY TP PRN (16:30)
[2017-01-16] MEDS ORDERED: ChlorproMAZINE HCL 50 MG TABLET PO PRN (16:30)
[2017-01-16] MEDS ORDERED: CeFAZolin 1 GM/DEXTROSE 50 ML IV SCH (17:00)
[2017-01-16] MEDS: MetFORMIN HCL 500 MG TABLET PO SCH (17:23)
[2017-01-16] MEDS: INSULIN ASPART 100 UNITS/ML SQ PRN (17:28)
[2017-01-16 18:27] LABS: GLUCOMETER DEV NAME(LOC) 6N 2D; GLUCOSE,POINT OF CARE 136 MG/DL (70-110)
[2017-01-16 19:24] VITALS: BP 150/65
[2017-01-16] MEDS: HEPARIN SODIUM,PORCINE 5,000 UNITS/ML VIAL SQ SCH (20:22)
[2017-01-16] MEDS: ASENAPINE 5 MG SUBLINGUAL TABLET SL SCH (20:24)
[2017-01-16] MEDS: TERBINAFINE HCL 1% 30 GM CREAM TP SCH (21:00)
[2017-01-16] MEDS ORDERED: TOPIRAMATE 25 MG TABLET PO SCH (21:00)
[2017-01-16 21:08] LABS: GLUCOMETER DEV NAME(LOC) 6N 2D; GLUCOSE,POINT OF CARE 105 MG/DL (70-110)
[2017-01-16] MEDS: CLINDAMYCIN 900 MG/D5% WATER 50 ML IV SCH (22:21)
[2017-01-16 23:42] VITALS: BP 129/71
[2017-01-17] MEDS: CeFAZolin 2 GM/DEXTROSE 50 ML IV SCH ×3 (00:12→16:29)
[2017-01-17] MEDS: NYSTATIN 15 GM POWDER BOTTLE TP SCH ×3 (00:13→20:24)
[2017-01-17] MEDS: TERBINAFINE HCL 1% 30 GM CREAM TP SCH ×3 (00:13→20:24)
[2017-01-17 04:12] VITALS: BP 126/89
[2017-01-17] MEDS: CLINDAMYCIN 900 MG/D5% WATER 50 ML IV SCH ×3 (05:34→21:27)
[2017-01-17] MEDS: INSULIN ASPART 100 UNITS/ML SQ PRN ×3 (05:38→16:33)
[2017-01-17 05:52] LABS: GLUCOMETER DEV NAME(LOC) 6N 2D; GLUCOSE,POINT OF CARE 141 MG/DL (70-110)
[2017-01-17 07:15] LABS: BASOPHILS # (AUTO) 0.03 K/uL (0.00-0.20); BASOPHILS % (AUTO) 0.5 % (0.0-2.0); EOSINOPHILS # (AUTO) 0.25 K/uL (0.00-0.70); EOSINOPHILS % (AUTO) 3.45 % (1.0-6.0); HEMATOCRIT 42.3 % (36-46); HEMOGLOBIN 13.8 g/dL (12.0-16.0); LYMPHOCYTES # (AUTO) 1.6 K/uL (1.0-4.8); LYMPHOCYTES % (AUTO) 22.5 % (22.0-44.0); MEAN CORPUSCULAR HGB CONC 32.6 G/dL (31.0-37.0); MEAN CORPUSCULAR VOLUME 95 fL (80-100); NEUTROPHILS # (AUTO) 4.4 K/uL (1.8-7.7); NEUTROPHILS % (AUTO) 60.6 % (40.0-70.0); PLATELET COUNT (AUTO) 256 K/uL (150-450); RED BLOOD CELL COUNT(AUTO) 4.44 MIL/uL (4.00-5.20); RED CELL DISTRIBUTION WIDTH 13.4 % (11.5-14.5)
[2017-01-17 07:31] LABS: ALANINE AMINOTRANSFERASE 21 U/L (12-78); ALBUMIN 2.9 g/dL (3.4-5.0); ALKALINE PHOSPHATASE 64 U/L (46-116); ANION GAP 6 mmol/L (8-16); ASPARTATE AMINOTRANSFERASE 17 U/L (15-37); BILIRUBIN,TOTAL 0.4 mg/dL (0.1-1.0); CALCIUM, TOTAL 8.7 mg/dL (8.8-10.5); CARBON DIOXIDE 27 mmol/L (22-29); CHLORIDE 105 mmol/L (98-107); CREATININE 0.87 mg/dL (0.60-1.30); GLOMERULAR FILTR. RATE CALC > 60 mL/min (>60); GLUCOSE,RANDOM 109 mg/dL (70-110); PHOSPHORUS 4.5 mg/dL (2.5-4.9); POTASSIUM 4.2 mmol/L (3.5-5.1); SODIUM SERUM 138 mmol/L (136-145); TOTAL PROTEIN, SERUM 7.4 g/dL (6.4-8.2); UREA NITROGEN, BLOOD 20 mg/dL (7-18)
[2017-01-17 08:09] VITALS: BP 128/58
[2017-01-17] MEDS: MetFORMIN HCL 500 MG TABLET PO SCH ×2 (08:39→16:30)
[2017-01-17] MEDS: OMEPRAZOLE 20 MG CAPSULE PO SCH (08:39)
[2017-01-17] MEDS: HEPARIN SODIUM,PORCINE 5,000 UNITS/ML VIAL SQ SCH ×2 (08:40→20:24)
[2017-01-17] MEDS: MESALAMINE 400 MG DR CAPSULE PO SCH (08:40)
[2017-01-17] MEDS: DOCUSATE SODIUM 100 MG CAPSULE PO SCH (08:40)
[2017-01-17] MEDS: IBUPROFEN 600 MG TABLET PO PRN (08:40)
[2017-01-17] MEDS: ASPIRIN 81 MG EC TABLET PO SCH (08:40)
[2017-01-17] MEDS: CARVEDILOL 3.125 MG TABLET PO SCH (08:40)
[2017-01-17] MEDS: HYDROCORTISONE 1% 30 GM CREAM TP PRN (08:41)
[2017-01-17] MEDS: ASENAPINE 5 MG SUBLINGUAL TABLET SL SCH ×2 (08:41→20:21)
[2017-01-17] MEDS: CHOLECALCIFEROL (VIT D3) 1,000 UNITS TABLET PO SCH (10:52)
[2017-01-17 17:27] LABS: GLUCOMETER DEV NAME(LOC) 6N 2D; GLUCOSE,POINT OF CARE 109 MG/DL (70-110)
[2017-01-17 17:38] LABS: GLUCOMETER DEV NAME(LOC) PVLAB130; GLUCOSE,POINT OF CARE 96 MG/DL (70-110)
[2017-01-17 20:00] VITALS: BP 133/66
[2017-01-17] MEDS ORDERED: TOPIRAMATE 25 MG TABLET PO SCH (21:00)
[2017-01-17 22:12] LABS: GLUCOMETER DEV NAME(LOC) PVLAB130; GLUCOSE,POINT OF CARE 116 MG/DL (70-110)
[2017-01-18 00:06] VITALS: BP 124/64
[2017-01-18] MEDS: CeFAZolin 2 GM/DEXTROSE 50 ML IV SCH ×3 (00:46→17:39)
[2017-01-18] MEDS: IBUPROFEN 600 MG TABLET PO PRN (02:28)
[2017-01-18 05:00] VITALS: BP 122/68
[2017-01-18] MEDS: CLINDAMYCIN 900 MG/D5% WATER 50 ML IV SCH ×3 (05:40→22:28)
[2017-01-18 06:09] LABS: GLUCOMETER DEV NAME(LOC) 6N 2D; GLUCOSE,POINT OF CARE 108 MG/DL (70-110)
[2017-01-18 07:19] VITALS: BP 126/74
[2017-01-18 07:55] LABS: BASOPHILS # (AUTO) 0.02 K/uL (0.00-0.20); BASOPHILS % (AUTO) 0.2 % (0.0-2.0); EOSINOPHILS # (AUTO) 0.29 K/uL (0.00-0.70); EOSINOPHILS % (AUTO) 4.13 % (1.0-6.0); HEMOGLOBIN 13.1 g/dL (12.0-16.0); LYMPHOCYTES # (AUTO) 1.3 K/uL (1.0-4.8); LYMPHOCYTES % (AUTO) 18.7 % (22.0-44.0); MEAN CORPUSCULAR HEMOGLOBIN 31.2 pg (26.0-34.0); MEAN CORPUSCULAR HGB CONC 32.7 G/dL (31.0-37.0); MEAN CORPUSCULAR VOLUME 95 fL (80-100); MONOCYTES % (AUTO) 14.2 % (2.0-9.0); NEUTROPHILS # (AUTO) 4.5 K/uL (1.8-7.7); NEUTROPHILS % (AUTO) 62.7 % (40.0-70.0); PLATELET COUNT (AUTO) 231 K/uL (150-450); RED BLOOD CELL COUNT(AUTO) 4.19 MIL/uL (4.00-5.20); RED CELL DISTRIBUTION WIDTH 13.5 % (11.5-14.5)
[2017-01-18] MEDS: ASPIRIN 81 MG EC TABLET PO SCH (08:24)
[2017-01-18] MEDS: ASENAPINE 5 MG SUBLINGUAL TABLET SL SCH (08:24)
[2017-01-18] MEDS: MESALAMINE 400 MG DR CAPSULE PO SCH (08:24)
[2017-01-18] MEDS: DOCUSATE SODIUM 100 MG CAPSULE PO SCH (08:25)
[2017-01-18] MEDS: CARVEDILOL 3.125 MG TABLET PO SCH (08:25)
[2017-01-18] MEDS: OMEPRAZOLE 20 MG CAPSULE PO SCH (08:25)
[2017-01-18] MEDS: HEPARIN SODIUM,PORCINE 5,000 UNITS/ML VIAL SQ SCH ×2 (08:25→19:48)
[2017-01-18] MEDS: MetFORMIN HCL 500 MG TABLET PO SCH ×2 (08:25→17:39)
[2017-01-18] MEDS: CHOLECALCIFEROL (VIT D3) 1,000 UNITS TABLET PO SCH (08:26)
[2017-01-18 08:28] LABS: ALANINE AMINOTRANSFERASE 15 U/L (12-78); ALBUMIN 2.7 g/dL (3.4-5.0); ALKALINE PHOSPHATASE 61 U/L (46-116); ANION GAP 6 mmol/L (8-16); ASPARTATE AMINOTRANSFERASE 16 U/L (15-37); BILIRUBIN,TOTAL 0.3 mg/dL (0.1-1.0); CALCIUM, TOTAL 8.6 mg/dL (8.8-10.5); CARBON DIOXIDE 28 mmol/L (22-29); CHLORIDE 105 mmol/L (98-107); CREATININE 0.81 mg/dL (0.60-1.30); GLOMERULAR FILTR. RATE CALC > 60 mL/min (>60); GLUCOSE,RANDOM 110 mg/dL (70-110); PHOSPHORUS 5.1 mg/dL (2.5-4.9); POTASSIUM 3.7 mmol/L (3.5-5.1); SODIUM SERUM 139 mmol/L (136-145); TOTAL PROTEIN, SERUM 6.9 g/dL (6.4-8.2); UREA NITROGEN, BLOOD 22 mg/dL (7-18)
[2017-01-18] MEDS: NYSTATIN 15 GM POWDER BOTTLE TP SCH ×2 (08:30→19:49)
[2017-01-18] MEDS: HYDROCORTISONE 1% 30 GM CREAM TP PRN (08:31)
[2017-01-18] MEDS: TERBINAFINE HCL 1% 30 GM CREAM TP SCH ×2 (08:31→19:49)
[2017-01-18 10:37] LABS: PROTHROMBIN TIME 10.6 SEC (9.4-11.6)
[2017-01-18 12:08] LABS: GLUCOMETER DEV NAME(LOC) 6N 2D; GLUCOSE,POINT OF CARE 83 MG/DL (70-110)
[2017-01-18 15:28] VITALS: BP 121/93
[2017-01-18] MEDS ORDERED: HEPARIN SODIUM 1000 UNITS/NS 500 ML ONE (15:41)
[2017-01-18 18:03] LABS: GLUCOMETER DEV NAME(LOC) PVLAB130; GLUCOSE,POINT OF CARE 85 MG/DL (70-110)
[2017-01-18 19:20] VITALS: BP 125/66
[2017-01-18] MEDS: ASENAPINE 10 MG SUBLINGUAL TABLET SL SCH (19:48)
[2017-01-18 23:12] LABS: GLUCOMETER DEV NAME(LOC) PVLAB130; GLUCOSE,POINT OF CARE 105 MG/DL (70-110)
[2017-01-19] MEDS ORDERED: SODIUM CHLORIDE 0.9% 500 ML IV ONE (00:05)
[2017-01-19 00:15] VITALS: BP 114/50
[2017-01-19] MEDS: CeFAZolin 2 GM/DEXTROSE 50 ML IV SCH ×3 (00:18→18:36)
[2017-01-19] MEDS: LORazepam 2 MG TABLET PO PRN ×3 (02:48→21:50)
[2017-01-19 05:00] VITALS: BP 142/93
[2017-01-19] MEDS: CLINDAMYCIN 900 MG/D5% WATER 50 ML IV SCH ×3 (06:08→22:58)
[2017-01-19 06:52] LABS: GLUCOMETER DEV NAME(LOC) 6N 2D; GLUCOSE,POINT OF CARE 96 MG/DL (70-110)
[2017-01-19 08:40] VITALS: BP 114/53
[2017-01-19] MEDS: MESALAMINE 400 MG DR CAPSULE PO SCH (09:34)
[2017-01-19] MEDS: DOCUSATE SODIUM 100 MG CAPSULE PO SCH (09:34)
[2017-01-19] MEDS: ASENAPINE 5 MG SUBLINGUAL TABLET SL SCH (09:34)
[2017-01-19] MEDS: CARVEDILOL 3.125 MG TABLET PO SCH (09:34)
[2017-01-19] MEDS: CHOLECALCIFEROL (VIT D3) 1,000 UNITS TABLET PO SCH (09:34)
[2017-01-19] MEDS: MetFORMIN HCL 500 MG TABLET PO SCH ×2 (09:34→18:36)
[2017-01-19] MEDS: OMEPRAZOLE 20 MG CAPSULE PO SCH (09:34)
[2017-01-19] MEDS: ASPIRIN 81 MG EC TABLET PO SCH (09:34)
[2017-01-19] MEDS: TERBINAFINE HCL 1% 30 GM CREAM TP SCH ×2 (09:35→21:49)
[2017-01-19] MEDS: NYSTATIN 15 GM POWDER BOTTLE TP SCH ×2 (09:35→21:49)
[2017-01-19] MEDS: HEPARIN SODIUM,PORCINE 5,000 UNITS/ML VIAL SQ SCH ×2 (09:35→21:49)
[2017-01-19 11:04] VITALS: BP 107/68
[2017-01-19 12:07] LABS: GLUCOMETER DEV NAME(LOC) 6N 2D; GLUCOSE,POINT OF CARE 92 MG/DL (70-110)
[2017-01-19 15:00] VITALS: BP 124/61
[2017-01-19 18:48] LABS: GLUCOMETER DEV NAME(LOC) 6N 1E; GLUCOSE,POINT OF CARE 101 MG/DL (70-110)
[2017-01-19 19:47] VITALS: BP 150/87
[2017-01-19] MEDS: ASENAPINE 10 MG SUBLINGUAL TABLET SL SCH (21:49)
[2017-01-20] VITALS (7 sets, daily range): BP systolic 115–136; BP diastolic 65–76
[2017-01-20] MEDS: CeFAZolin 2 GM/DEXTROSE 50 ML IV SCH ×3 (00:59→16:45)
[2017-01-20 03:12] LABS: GLUCOMETER DEV NAME(LOC) 6N 1E; GLUCOSE,POINT OF CARE 105 MG/DL (70-110)
[2017-01-20] MEDS: MetFORMIN HCL 500 MG TABLET PO SCH ×2 (07:45→18:20)
[2017-01-20] MEDS: LORazepam 2 MG TABLET PO PRN ×2 (07:46→20:07)
[2017-01-20] MEDS: DOCUSATE SODIUM 100 MG CAPSULE PO SCH (07:48)
[2017-01-20] MEDS: ASPIRIN 81 MG EC TABLET PO SCH (07:48)
[2017-01-20] MEDS: OMEPRAZOLE 20 MG CAPSULE PO SCH (07:48)
[2017-01-20] MEDS: HEPARIN SODIUM,PORCINE 5,000 UNITS/ML VIAL SQ SCH ×2 (07:49→20:07)
[2017-01-20] MEDS: CHOLECALCIFEROL (VIT D3) 1,000 UNITS TABLET PO SCH (07:49)
[2017-01-20] MEDS: CARVEDILOL 3.125 MG TABLET PO SCH (07:49)
[2017-01-20] MEDS: ASENAPINE 5 MG SUBLINGUAL TABLET SL SCH (07:53)
[2017-01-20] MEDS: MESALAMINE 400 MG DR CAPSULE PO SCH (07:53)
[2017-01-20] MEDS: HYDROCORTISONE 1% 30 GM CREAM TP PRN (07:54)
[2017-01-20] MEDS: TERBINAFINE HCL 1% 30 GM CREAM TP SCH ×2 (07:55→20:08)
[2017-01-20] MEDS: NYSTATIN 15 GM POWDER BOTTLE TP SCH ×2 (07:55→20:08)
[2017-01-20 09:27] LABS: GLUCOMETER DEV NAME(LOC) 6N 1E; GLUCOSE,POINT OF CARE 106 MG/DL (70-110)
[2017-01-20 11:27] LABS: GLUCOMETER DEV NAME(LOC) 6N 1E; GLUCOSE,POINT OF CARE 81 MG/DL (70-110)
[2017-01-20 18:36] LABS: GLUCOMETER DEV NAME(LOC) 6N 2D; GLUCOSE,POINT OF CARE 110 MG/DL (70-110)
[2017-01-20] MEDS: ASENAPINE 10 MG SUBLINGUAL TABLET SL SCH (20:07)
[2017-01-21] MEDS: CeFAZolin 2 GM/DEXTROSE 50 ML IV SCH ×3 (00:27→17:10)
[2017-01-21 01:27] LABS: GLUCOMETER DEV NAME(LOC) 6N 2D; GLUCOSE,POINT OF CARE 96 MG/DL (70-110)
[2017-01-21] MEDS: IBUPROFEN 600 MG TABLET PO PRN ×2 (04:15→22:50)
[2017-01-21 05:27] VITALS: BP 90/56
[2017-01-21 05:56] LABS: BASOPHILS % (AUTO) 0.3 % (0.0-2.0); EOSINOPHILS % (AUTO) 4.2 % (1.0-6.0); HEMATOCRIT 38.8 % (36-46); HEMOGLOBIN 13.1 g/dL (12.0-16.0); LYMPHOCYTES # (AUTO) 1.7 K/uL (1.0-4.8); LYMPHOCYTES % (AUTO) 23.4 % (22.0-44.0); MEAN CORPUSCULAR HEMOGLOBIN 31.7 pg (26.0-34.0); MEAN CORPUSCULAR HGB CONC 33.8 G/dL (31.0-37.0); MEAN CORPUSCULAR VOLUME 94 fL (80-100); MONOCYTES # (AUTO) 0.6 K/uL (0.1-1.0); MONOCYTES % (AUTO) 8.6 % (2.0-9.0); NEUTROPHILS # (AUTO) 4.7 K/uL (1.8-7.7); NEUTROPHILS % (AUTO) 63.5 % (40.0-70.0); PLATELET COUNT (AUTO) 219 K/uL (150-450); RED BLOOD CELL COUNT(AUTO) 4.13 MIL/uL (4.00-5.20)
[2017-01-21 06:38] LABS: ALANINE AMINOTRANSFERASE 13 U/L (12-78); ALBUMIN 2.8 g/dL (3.4-5.0); ALKALINE PHOSPHATASE 59 U/L (46-116); ANION GAP 6 mmol/L (8-16); ASPARTATE AMINOTRANSFERASE 16 U/L (15-37); BILIRUBIN,TOTAL 0.4 mg/dL (0.1-1.0); CALCIUM, TOTAL 8.7 mg/dL (8.8-10.5); CARBON DIOXIDE 29 mmol/L (22-29); CHLORIDE 103 mmol/L (98-107); CREATININE 0.86 mg/dL (0.60-1.30); GLOMERULAR FILTR. RATE CALC > 60 mL/min (>60); GLUCOSE,RANDOM 171 mg/dL (70-110); PHOSPHORUS 4.6 mg/dL (2.5-4.9); POTASSIUM 3.9 mmol/L (3.5-5.1); SODIUM SERUM 138 mmol/L (136-145); TOTAL PROTEIN, SERUM 6.8 g/dL (6.4-8.2); UREA NITROGEN, BLOOD 18 mg/dL (7-18)
[2017-01-21 06:48] LABS: GLUCOMETER DEV NAME(LOC) 6N 2D; GLUCOSE,POINT OF CARE 132 MG/DL (70-110)
[2017-01-21 08:30] VITALS: BP 119/54
[2017-01-21] MEDS: DOCUSATE SODIUM 100 MG CAPSULE PO SCH (09:09)
[2017-01-21] MEDS: MetFORMIN HCL 500 MG TABLET PO SCH ×2 (09:09→17:10)
[2017-01-21] MEDS: HEPARIN SODIUM,PORCINE 5,000 UNITS/ML VIAL SQ SCH ×2 (09:09→20:32)
[2017-01-21] MEDS: CARVEDILOL 3.125 MG TABLET PO SCH (09:09)
[2017-01-21] MEDS: MESALAMINE 400 MG DR CAPSULE PO SCH (09:10)
[2017-01-21] MEDS: CHOLECALCIFEROL (VIT D3) 1,000 UNITS TABLET PO SCH (09:10)
[2017-01-21] MEDS: ASPIRIN 81 MG EC TABLET PO SCH (09:10)
[2017-01-21] MEDS: OMEPRAZOLE 20 MG CAPSULE PO SCH (09:12)
[2017-01-21] MEDS: ASENAPINE 5 MG SUBLINGUAL TABLET SL SCH (09:13)
[2017-01-21] MEDS: TERBINAFINE HCL 1% 30 GM CREAM TP SCH ×2 (09:16→20:32)
[2017-01-21] MEDS: NYSTATIN 15 GM POWDER BOTTLE TP SCH ×2 (09:16→20:33)
[2017-01-21 12:15] VITALS: BP 114/60
[2017-01-21 13:02] LABS: GLUCOMETER DEV NAME(LOC) 6N 1E; GLUCOSE,POINT OF CARE 90 MG/DL (70-110)
[2017-01-21] MEDS: LORazepam 2 MG TABLET PO PRN ×2 (15:59→21:11)
[2017-01-21 16:15] VITALS: BP 116/52
[2017-01-21 17:27] LABS: GLUCOMETER DEV NAME(LOC) 6N 1E; GLUCOSE,POINT OF CARE 75 MG/DL (70-110)
[2017-01-21 19:20] VITALS: BP 102/50
[2017-01-21] MEDS: ASENAPINE 10 MG SUBLINGUAL TABLET SL SCH (20:31)
[2017-01-21 23:37] LABS: GLUCOMETER DEV NAME(LOC) 6N 1E; GLUCOSE,POINT OF CARE 115 MG/DL (70-110)
[2017-01-22 00:15] VITALS: BP 133/58
[2017-01-22] MEDS: CeFAZolin 2 GM/DEXTROSE 50 ML IV SCH ×3 (00:53→17:27)
[2017-01-22 05:05] VITALS: BP 110/73
[2017-01-22 06:32] LABS: GLUCOMETER DEV NAME(LOC) 6N 1E; GLUCOSE,POINT OF CARE 106 MG/DL (70-110)
[2017-01-22] MEDS ORDERED: SODIUM CHLORIDE 0.9% 250 ML IV ONE (06:38)
[2017-01-22 08:15] VITALS: BP 104/68
[2017-01-22] MEDS: HEPARIN SODIUM,PORCINE 5,000 UNITS/ML VIAL SQ SCH ×2 (08:35→20:24)
[2017-01-22] MEDS: ASENAPINE 5 MG SUBLINGUAL TABLET SL SCH (08:35)
[2017-01-22] MEDS: DOCUSATE SODIUM 100 MG CAPSULE PO SCH (08:35)
[2017-01-22] MEDS: CHOLECALCIFEROL (VIT D3) 1,000 UNITS TABLET PO SCH (08:35)
[2017-01-22] MEDS: CARVEDILOL 3.125 MG TABLET PO SCH (08:35)
[2017-01-22] MEDS: OMEPRAZOLE 20 MG CAPSULE PO SCH (08:35)
[2017-01-22] MEDS: MetFORMIN HCL 500 MG TABLET PO SCH ×2 (08:35→17:34)
[2017-01-22] MEDS: MESALAMINE 400 MG DR CAPSULE PO SCH (08:36)
[2017-01-22] MEDS: ASPIRIN 81 MG EC TABLET PO SCH (08:36)
[2017-01-22] MEDS: NYSTATIN 15 GM POWDER BOTTLE TP SCH ×2 (08:38→20:26)
[2017-01-22] MEDS: HYDROCORTISONE 1% 30 GM CREAM TP PRN (08:38)
[2017-01-22] MEDS: TERBINAFINE HCL 1% 30 GM CREAM TP SCH ×2 (08:39→20:29)
[2017-01-22 11:43] LABS: GLUCOMETER DEV NAME(LOC) 6N 1E; GLUCOSE,POINT OF CARE 88 MG/DL (70-110)
[2017-01-22 12:19] VITALS: BP 113/65
[2017-01-22] MEDS: LORazepam 2 MG TABLET PO PRN (12:45)
[2017-01-22] MEDS: IBUPROFEN 600 MG TABLET PO PRN (12:48)
[2017-01-22 19:07] LABS: GLUCOMETER DEV NAME(LOC) 6N 1E; GLUCOSE,POINT OF CARE 104 MG/DL (70-110)
[2017-01-22 19:41] VITALS: BP 101/51
[2017-01-22] MEDS: ASENAPINE 10 MG SUBLINGUAL TABLET SL SCH (20:24)
== END 2017-01-22 21:50 | DRG 603 ==
LOC: 6N 14:40
PROVIDERS: ADMIT Internal Medicine; ATTEND Internal Medicine
PROC: 02HV33Z Insertion of Infusion Device into Superior Vena Cava, Percutaneous Approach (ICD-10-PCS; principal; 2017-01-18)
DX: L03.115 Cellulitis of right lower limb (principal); E11.65 Type 2 diabetes mellitus with hyperglycemia; E66.01 Morbid (severe) obesity due to excess calories; J44.9 Chronic obstructive pulmonary disease, unspecified; B35.3 Tinea pedis; F17.200 Nicotine dependence, unspecified, uncomplicated; B35.6 Tinea cruris; Z68.42 Body mass index [BMI] 45.0-49.9, adult; G47.33 Obstructive sleep apnea (adult) (pediatric); L03.116 Cellulitis of left lower limb; E55.9 Vitamin D deficiency, unspecified; F31.9 Bipolar disorder, unspecified; I10 Essential (primary) hypertension; G47.00 Insomnia, unspecified; K21.9 Gastro-esophageal reflux disease without esophagitis; K59.00 Constipation, unspecified; Z99.3 Dependence on wheelchair; Z88.8 Allergy status to other drugs, medicaments and biological substances
CPT/HCPCS: 36245; 36569; 76937; 82962; 83735; 84100; J0690; J1644; J3490; J7030; J7040; J7050

== ENCOUNTER 2017-01-28 15:58 | Inpatient (IN) | payer MEDICARE, OTHER ==
[~2017-01-28] VITALS: Ht 154.9 cm; Wt 119.3 kg
[~2017-01-28 15:58] MED LIST changes: -ALBU8HFA IH; -TOPI25 PO
[2017-01-28 16:37] LABS: GLUCOSE,POINT OF CARE 115 MG/DL (70-110)
[2017-01-28] MEDS ORDERED: FURO20 PO (17:11)
[2017-01-28] MEDS ORDERED: CEFA2PLA9 IVP (17:11)
[2017-01-28] MEDS ORDERED: LORA0.5T2 PO (17:11)
[2017-01-28 17:40] LABS: BASOPHILS # (AUTO) 0.08 K/uL (0.00-0.20); BASOPHILS % (AUTO) 1.2 % (0.0-2.0); EOSINOPHILS # (AUTO) 0.59 K/uL (0.00-0.70); EOSINOPHILS % (AUTO) 7.98 % (1.0-6.0); HEMATOCRIT 40.5 % (36-46); HEMOGLOBIN 13.3 g/dL (12.0-16.0); LYMPHOCYTES # (AUTO) 1.6 K/uL (1.0-4.8); LYMPHOCYTES % (AUTO) 21.2 % (22.0-44.0); MEAN CORPUSCULAR HEMOGLOBIN 31.4 pg (26.0-34.0); MEAN CORPUSCULAR VOLUME 95 fL (80-100); MONOCYTES # (AUTO) 0.7 K/uL (0.1-1.0); MONOCYTES % (AUTO) 9.6 % (2.0-9.0); NEUTROPHILS # (AUTO) 4.4 K/uL (1.8-7.7); PLATELET COUNT (AUTO) 181 K/uL (150-450); RED BLOOD CELL COUNT(AUTO) 4.24 MIL/uL (4.00-5.20); RED CELL DISTRIBUTION WIDTH 14.3 % (11.5-14.5); WHITE BLOOD COUNT (AUTO) 7.4 K/uL (4.5-11.0)
[2017-01-28 17:59] LABS: ANION GAP 6 mmol/L (8-16); CALCIUM, TOTAL 8.7 mg/dL (8.8-10.5); CARBON DIOXIDE 30 mmol/L (22-29); CHLORIDE 100 mmol/L (98-107); CREATININE 0.82 mg/dL (0.60-1.30); GLOMERULAR FILTR. RATE CALC > 60 mL/min (>60); SODIUM SERUM 136 mmol/L (136-145); UREA NITROGEN, BLOOD 20 mg/dL (7-18)
[2017-01-28 18:06] LABS: ALANINE AMINOTRANSFERASE 13 U/L (12-78); ALBUMIN 3.1 g/dL (3.4-5.0); ASPARTATE AMINOTRANSFERASE 20 U/L (15-37); BILIRUBIN,TOTAL 0.4 mg/dL (0.1-1.0); TOTAL PROTEIN, SERUM 7.5 g/dL (6.4-8.2)
[2017-01-28 19:00] LABS: GLUCOSE, URINE (UA) NEGATIVE (NEGATIVE); KETONES,URINE NEGATIVE (NEGATIVE); LEUKOCYTE ESTERASE ,URINE MODERATE (NEGATIVE); OCCULT BLOOD,URINE NEGATIVE (NEGATIVE); PROTEIN,URINE NEGATIVE (NEGATIVE)
[2017-01-28] MEDS ORDERED: LORazepam 1 MG TABLET PO ONE (19:30)
[2017-01-28 20:04] LABS: ADD UA MICROSCOPIC YES; APPEARANCE,URINE HAZY (CLEAR); RBC,URINE None Seen /HPF (0-2)
[2017-01-28 20:06] LABS: SQUAMOUS EPITHELIAL CELL,UR Few /LPF (None Seen)
[2017-01-28 20:50] VITALS: BP 107/64
[2017-01-28] MEDS: LORazepam 0.5 MG TABLET PO SCH (22:30)
[2017-01-28] MEDS: NYSTATIN 15 GM POWDER BOTTLE TP SCH (23:00)
[2017-01-28] MEDS: TERBINAFINE HCL 1% 30 GM CREAM TP SCH (23:00)
[2017-01-28] MEDS ORDERED: SODIUM CHLORIDE 0.9% 250 ML IV ONE (23:31)
[2017-01-28] MEDS: ASENAPINE 5 MG SUBLINGUAL TABLET SL SCH (23:37)
[2017-01-28] MEDS: HYDROCODONE/ACETAMINOPHEN 5-325 MG TABLET PO PRN (23:37)
[2017-01-28] MEDS: CeFAZolin 2 GM/DEXTROSE 50 ML IV SCH (23:38)
[2017-01-29] MEDS ORDERED: SODIUM CHLORIDE 0.9% 250 ML IV ONE (05:11)
[2017-01-29 05:57] VITALS: BP 131/75
[2017-01-29] MEDS: CeFAZolin 2 GM/DEXTROSE 50 ML IV SCH ×3 (05:57→22:07)
[2017-01-29] MEDS ORDERED: ZOLPIDEM TARTRATE 5 MG TABLET PO PRN (07:00)
[2017-01-29 07:03] LABS: BASOPHILS # (AUTO) 0.02 K/uL (0.00-0.20); BASOPHILS % (AUTO) 0.4 % (0.0-2.0); EOSINOPHILS # (AUTO) 0.42 K/uL (0.00-0.70); EOSINOPHILS % (AUTO) 7.15 % (1.0-6.0); HEMATOCRIT 39.9 % (36-46); HEMOGLOBIN 13.1 g/dL (12.0-16.0); LYMPHOCYTES # (AUTO) 1.5 K/uL (1.0-4.8); LYMPHOCYTES % (AUTO) 26.2 % (22.0-44.0); MEAN CORPUSCULAR HEMOGLOBIN 31.7 pg (26.0-34.0); MEAN CORPUSCULAR HGB CONC 32.8 G/dL (31.0-37.0); MEAN CORPUSCULAR VOLUME 97 fL (80-100); MONOCYTES # (AUTO) 0.6 K/uL (0.1-1.0); MONOCYTES % (AUTO) 10.8 % (2.0-9.0); NEUTROPHILS # (AUTO) 3.3 K/uL (1.8-7.7); NEUTROPHILS % (AUTO) 55.5 % (40.0-70.0); PLATELET COUNT (AUTO) 169 K/uL (150-450); RED BLOOD CELL COUNT(AUTO) 4.13 MIL/uL (4.00-5.20); RED CELL DISTRIBUTION WIDTH 14.3 % (11.5-14.5); WHITE BLOOD COUNT (AUTO) 5.9 K/uL (4.5-11.0)
[2017-01-29 07:28] LABS: ANION GAP 4 mmol/L (8-16); CALCIUM, TOTAL 8.6 mg/dL (8.8-10.5); CARBON DIOXIDE 33 mmol/L (22-29); CHLORIDE 101 mmol/L (98-107); CREATININE 0.79 mg/dL (0.60-1.30); GLOMERULAR FILTR. RATE CALC > 60 mL/min (>60); PHOSPHORUS 4.7 mg/dL (2.5-4.9); POTASSIUM 4.5 mmol/L (3.5-5.1); SODIUM SERUM 138 mmol/L (136-145); UREA NITROGEN, BLOOD 20 mg/dL (7-18)
[2017-01-29 07:41] VITALS: BP 136/86
[2017-01-29] MEDS: CARVEDILOL 3.125 MG TABLET PO SCH (08:14)
[2017-01-29] MEDS: DOCUSATE SODIUM 100 MG CAPSULE PO SCH (08:14)
[2017-01-29] MEDS: MetFORMIN HCL 500 MG TABLET PO SCH ×2 (08:14→17:42)
[2017-01-29] MEDS: ASENAPINE 5 MG SUBLINGUAL TABLET SL SCH (08:14)
[2017-01-29] MEDS: MESALAMINE 400 MG DR CAPSULE PO SCH (08:14)
[2017-01-29] MEDS: OMEPRAZOLE 20 MG CAPSULE PO SCH (08:14)
[2017-01-29] MEDS: LORazepam 0.5 MG TABLET PO SCH ×2 (08:14→20:31)
[2017-01-29] MEDS: CHOLECALCIFEROL (VIT D3) 1,000 UNITS TABLET PO SCH (08:14)
[2017-01-29] MEDS: NYSTATIN 15 GM POWDER BOTTLE TP SCH ×2 (08:15→20:30)
[2017-01-29] MEDS: HEPARIN SODIUM,PORCINE 5,000 UNITS/ML VIAL SQ SCH ×2 (08:15→20:31)
[2017-01-29] MEDS: ASPIRIN 81 MG EC TABLET PO SCH (08:15)
[2017-01-29] MEDS: TERBINAFINE HCL 1% 30 GM CREAM TP SCH ×2 (08:15→20:30)
[2017-01-29] MEDS: FUROSEMIDE 20 MG TABLET PO SCH (08:15)
[2017-01-29 12:30] VITALS: BP 131/84
[2017-01-29] MEDS: HYDROCODONE/ACETAMINOPHEN 5-325 MG TABLET PO PRN ×2 (14:32→18:59)
[2017-01-29 16:10] VITALS: BP 107/56
[2017-01-29] MEDS ORDERED: LORazepam 1 MG TABLET PO PRN (20:30)
[2017-01-29 21:17] LABS: GLUCOSE,POINT OF CARE 109 MG/DL (70-110)
[2017-01-29 22:03] VITALS: BP 126/65
[2017-01-29] MEDS: ASENAPINE 10 MG SUBLINGUAL TABLET SL SCH (22:07)
[2017-01-30] MEDS ORDERED: VANCOMYCIN HCL 1.5 GM in DEXTROSE 5%-WATER 250 ML IV ONE (00:30)
[2017-01-30] MEDS: HYDROCODONE/ACETAMINOPHEN 5-325 MG TABLET PO PRN ×2 (04:02→20:57)
[2017-01-30 04:31] VITALS: BP 119/66
[2017-01-30 06:20] LABS: ANION GAP 7 mmol/L (8-16); CALCIUM, TOTAL 8.7 mg/dL (8.8-10.5); CARBON DIOXIDE 33 mmol/L (22-29); CHLORIDE 100 mmol/L (98-107); CREATININE 0.76 mg/dL (0.60-1.30); GLOMERULAR FILTR. RATE CALC > 60 mL/min (>60); POTASSIUM 4.2 mmol/L (3.5-5.1); SODIUM SERUM 140 mmol/L (136-145); UREA NITROGEN, BLOOD 21 mg/dL (7-18)
[2017-01-30] MEDS: ALBUTEROL SULFATE 2.5 MG/0.5 ML NEB SOLUTION NEB PRN ×2 (08:11→16:04)
[2017-01-30] MEDS: IPRATROPIUM BROMIDE 0.5 MG/2.5 ML NEB SOLUTION NEB PRN ×2 (08:11→16:04)
[2017-01-30] MEDS: VANCOMYCIN HCL 1.5 GM in DEXTROSE 5%-WATER 250 ML IV SCH ×2 (09:26→20:37)
[2017-01-30] MEDS: ASENAPINE 5 MG SUBLINGUAL TABLET SL SCH (09:27)
[2017-01-30] MEDS: FUROSEMIDE 20 MG TABLET PO SCH (09:27)
[2017-01-30] MEDS: ASPIRIN 81 MG EC TABLET PO SCH (09:27)
[2017-01-30] MEDS: CARVEDILOL 3.125 MG TABLET PO SCH (09:27)
[2017-01-30] MEDS: OMEPRAZOLE 20 MG CAPSULE PO SCH (09:27)
[2017-01-30] MEDS: CHOLECALCIFEROL (VIT D3) 1,000 UNITS TABLET PO SCH (09:27)
[2017-01-30] MEDS: MESALAMINE 400 MG DR CAPSULE PO SCH (09:27)
[2017-01-30] MEDS: DOCUSATE SODIUM 100 MG CAPSULE PO SCH (09:27)
[2017-01-30] MEDS: NYSTATIN 15 GM POWDER BOTTLE TP SCH ×2 (09:28→20:37)
[2017-01-30] MEDS: HEPARIN SODIUM,PORCINE 5,000 UNITS/ML VIAL SQ SCH ×2 (09:28→20:37)
[2017-01-30] MEDS: MetFORMIN HCL 500 MG TABLET PO SCH ×2 (09:28→17:47)
[2017-01-30] MEDS: LORazepam 0.5 MG TABLET PO SCH ×2 (09:28→20:37)
[2017-01-30] MEDS: TERBINAFINE HCL 1% 30 GM CREAM TP SCH ×2 (09:29→20:38)
[2017-01-30 09:30] VITALS: BP 116/65
[2017-01-30 11:00] VITALS: BP 112/62
[2017-01-30 15:33] LABS: GLUCOSE,POINT OF CARE 106 MG/DL (70-110)
[2017-01-30 15:40] VITALS: BP 114/72
[2017-01-30 19:30] VITALS: BP 118/74
[2017-01-30] MEDS: ASENAPINE 10 MG SUBLINGUAL TABLET SL SCH (20:37)
[2017-01-31] MEDS: ALBUTEROL SULFATE 2.5 MG/0.5 ML NEB SOLUTION NEB PRN ×2 (02:40→16:19)
[2017-01-31] MEDS: IPRATROPIUM BROMIDE 0.5 MG/2.5 ML NEB SOLUTION NEB PRN ×2 (02:40→16:18)
[2017-01-31 03:08] VITALS: BP 123/72
[2017-01-31 07:14] LABS: ANION GAP 4 mmol/L (8-16); CALCIUM, TOTAL 8.9 mg/dL (8.8-10.5); CARBON DIOXIDE 33 mmol/L (22-29); CHLORIDE 103 mmol/L (98-107); CREATININE 0.82 mg/dL (0.60-1.30); GLOMERULAR FILTR. RATE CALC > 60 mL/min (>60); POTASSIUM 4.2 mmol/L (3.5-5.1); SODIUM SERUM 140 mmol/L (136-145); UREA NITROGEN, BLOOD 21 mg/dL (7-18)
[2017-01-31 08:50] VITALS: BP 103/54
[2017-01-31] MEDS: MESALAMINE 400 MG DR CAPSULE PO SCH (09:22)
[2017-01-31] MEDS: ASENAPINE 5 MG SUBLINGUAL TABLET SL SCH (09:22)
[2017-01-31] MEDS: VANCOMYCIN HCL 1.5 GM in DEXTROSE 5%-WATER 250 ML IV SCH ×2 (09:22→20:34)
[2017-01-31] MEDS: DOCUSATE SODIUM 100 MG CAPSULE PO SCH (09:23)
[2017-01-31] MEDS: OMEPRAZOLE 20 MG CAPSULE PO SCH (09:23)
[2017-01-31] MEDS: CHOLECALCIFEROL (VIT D3) 1,000 UNITS TABLET PO SCH (09:23)
[2017-01-31] MEDS: LORazepam 0.5 MG TABLET PO SCH ×2 (09:23→20:35)
[2017-01-31] MEDS: MetFORMIN HCL 500 MG TABLET PO SCH ×2 (09:23→18:01)
[2017-01-31] MEDS: ASPIRIN 81 MG EC TABLET PO SCH (09:23)
[2017-01-31] MEDS: HEPARIN SODIUM,PORCINE 5,000 UNITS/ML VIAL SQ SCH ×2 (09:23→20:34)
[2017-01-31] MEDS: FUROSEMIDE 20 MG TABLET PO SCH (09:23)
[2017-01-31] MEDS: NYSTATIN 15 GM POWDER BOTTLE TP SCH ×2 (09:30→20:43)
[2017-01-31] MEDS: TERBINAFINE HCL 1% 30 GM CREAM TP SCH ×2 (09:31→20:43)
[2017-01-31] MEDS: CARVEDILOL 3.125 MG TABLET PO SCH (09:32)
[2017-01-31 16:13] VITALS: BP 136/62
[2017-01-31 19:51] VITALS: BP 135/62
[2017-01-31] MEDS: ASENAPINE 10 MG SUBLINGUAL TABLET SL SCH (20:35)
[2017-01-31] MEDS: HYDROCODONE/ACETAMINOPHEN 5-325 MG TABLET PO PRN (20:35)
[2017-01-31 23:50] VITALS: BP 136/64
[2017-02-01 03:45] VITALS: BP 128/68
[2017-02-01 06:08] LABS: GLUCOSE,POINT OF CARE 110 MG/DL (70-110)
[2017-02-01 07:04] LABS: ANION GAP 8 mmol/L (8-16); CARBON DIOXIDE 29 mmol/L (22-29); CHLORIDE 101 mmol/L (98-107); CREATININE 0.76 mg/dL (0.60-1.30); GLOMERULAR FILTR. RATE CALC > 60 mL/min (>60); POTASSIUM 4.2 mmol/L (3.5-5.1); SODIUM SERUM 138 mmol/L (136-145); UREA NITROGEN, BLOOD 24 mg/dL (7-18)
[2017-02-01] MEDS: VANCOMYCIN HCL 1.5 GM in DEXTROSE 5%-WATER 250 ML IV SCH ×2 (08:08→20:39)
[2017-02-01] MEDS: HYDROCODONE/ACETAMINOPHEN 5-325 MG TABLET PO PRN ×2 (08:52→17:39)
[2017-02-01] MEDS: DOCUSATE SODIUM 100 MG CAPSULE PO SCH (08:52)
[2017-02-01] MEDS: MESALAMINE 400 MG DR CAPSULE PO SCH (08:52)
[2017-02-01] MEDS: LORazepam 0.5 MG TABLET PO SCH ×2 (08:52→20:39)
[2017-02-01] MEDS: ASPIRIN 81 MG EC TABLET PO SCH (08:52)
[2017-02-01] MEDS: FUROSEMIDE 20 MG TABLET PO SCH (08:52)
[2017-02-01] MEDS: CARVEDILOL 3.125 MG TABLET PO SCH (08:53)
[2017-02-01] MEDS: CHOLECALCIFEROL (VIT D3) 1,000 UNITS TABLET PO SCH (08:53)
[2017-02-01] MEDS: HEPARIN SODIUM,PORCINE 5,000 UNITS/ML VIAL SQ SCH ×2 (08:53→20:39)
[2017-02-01] MEDS: OMEPRAZOLE 20 MG CAPSULE PO SCH (08:53)
[2017-02-01] MEDS: MetFORMIN HCL 500 MG TABLET PO SCH ×2 (08:53→17:37)
[2017-02-01] MEDS: ASENAPINE 5 MG SUBLINGUAL TABLET SL SCH (08:55)
[2017-02-01] MEDS: NYSTATIN 15 GM POWDER BOTTLE TP SCH ×2 (08:55→20:46)
[2017-02-01] MEDS: TERBINAFINE HCL 1% 30 GM CREAM TP SCH ×2 (08:56→20:47)
[2017-02-01 12:46] VITALS: BP 136/65
[2017-02-01 18:12] LABS: GLUCOSE,POINT OF CARE 104 MG/DL (70-110)
[2017-02-01] MEDS: ASENAPINE 10 MG SUBLINGUAL TABLET SL SCH (20:39)
[2017-02-01 21:00] VITALS: BP 111/61
[2017-02-02 00:30] VITALS: BP 122/66
[2017-02-02] MEDS: IPRATROPIUM BROMIDE 0.5 MG/2.5 ML NEB SOLUTION NEB PRN (02:06)
[2017-02-02] MEDS: ALBUTEROL SULFATE 2.5 MG/0.5 ML NEB SOLUTION NEB PRN (02:06)
[2017-02-02] MEDS: HYDROCODONE/ACETAMINOPHEN 5-325 MG TABLET PO PRN ×2 (03:53→16:52)
[2017-02-02 04:50] VITALS: BP 111/70
[2017-02-02 06:50] LABS: ANION GAP 8 mmol/L (8-16); CARBON DIOXIDE 30 mmol/L (22-29); CHLORIDE 100 mmol/L (98-107); CREATININE 0.76 mg/dL (0.60-1.30); GLOMERULAR FILTR. RATE CALC > 60 mL/min (>60); POTASSIUM 4.3 mmol/L (3.5-5.1); SODIUM SERUM 138 mmol/L (136-145); UREA NITROGEN, BLOOD 23 mg/dL (7-18)
[2017-02-02 07:38] VITALS: BP 113/65
[2017-02-02] MEDS: HEPARIN SODIUM,PORCINE 5,000 UNITS/ML VIAL SQ SCH (08:23)
[2017-02-02] MEDS: MetFORMIN HCL 500 MG TABLET PO SCH ×2 (08:23→16:53)
[2017-02-02] MEDS: ASENAPINE 5 MG SUBLINGUAL TABLET SL SCH (08:24)
[2017-02-02] MEDS: CARVEDILOL 3.125 MG TABLET PO SCH (08:24)
[2017-02-02] MEDS: LORazepam 0.5 MG TABLET PO SCH (08:24)
[2017-02-02] MEDS: MESALAMINE 400 MG DR CAPSULE PO SCH (08:24)
[2017-02-02] MEDS: DOCUSATE SODIUM 100 MG CAPSULE PO SCH (08:24)
[2017-02-02] MEDS: ASPIRIN 81 MG EC TABLET PO SCH (08:24)
[2017-02-02] MEDS: CHOLECALCIFEROL (VIT D3) 1,000 UNITS TABLET PO SCH (08:24)
[2017-02-02] MEDS: FUROSEMIDE 20 MG TABLET PO SCH (08:24)
[2017-02-02] MEDS: OMEPRAZOLE 20 MG CAPSULE PO SCH (08:24)
[2017-02-02] MEDS: NYSTATIN 15 GM POWDER BOTTLE TP SCH (08:30)
[2017-02-02] MEDS: TERBINAFINE HCL 1% 30 GM CREAM TP SCH (08:30)
[2017-02-02] MEDS: VANCOMYCIN HCL 1.5 GM in DEXTROSE 5%-WATER 250 ML IV SCH (09:05)
[2017-02-02] MEDS ORDERED: SODIUM CHLORIDE 0.9% 500 ML IV ONE (09:07)
[2017-02-02 11:22] VITALS: BP 111/50
[2017-02-02 16:00] VITALS: BP 112/56
[2017-02-02 19:53] LABS: GLUCOSE,POINT OF CARE 110 MG/DL (70-110)
== END 2017-02-02 18:45 | DRG 603 ==
LOC: EMS 16:02 → 6N 20:48
PROVIDERS: ADMIT Internal Medicine; ATTEND Internal Medicine
DX: L03.116 Cellulitis of left lower limb (principal); E11.65 Type 2 diabetes mellitus with hyperglycemia; E66.01 Morbid (severe) obesity due to excess calories; F31.64 Bipolar disorder, current episode mixed, severe, with psychotic features; I11.0 Hypertensive heart disease with heart failure; I50.9 Heart failure, unspecified; F17.210 Nicotine dependence, cigarettes, uncomplicated; B35.3 Tinea pedis; Z68.42 Body mass index [BMI] 45.0-49.9, adult; J44.9 Chronic obstructive pulmonary disease, unspecified; E55.9 Vitamin D deficiency, unspecified; G47.33 Obstructive sleep apnea (adult) (pediatric); K21.9 Gastro-esophageal reflux disease without esophagitis; F41.9 Anxiety disorder, unspecified; L03.115 Cellulitis of right lower limb; G47.00 Insomnia, unspecified; K59.09 Other constipation; I25.10 Atherosclerotic heart disease of native coronary artery without angina pectoris; B35.6 Tinea cruris; Z53.29 Procedure and treatment not carried out because of patient's decision for other reasons; Z91.041 Radiographic dye allergy status; Z71.6 Tobacco abuse counseling; Z79.84 Long term (current) use of oral hypoglycemic drugs; Z79.82 Long term (current) use of aspirin; Z79.899 Other long term (current) drug therapy; Z99.3 Dependence on wheelchair; Z59.0 Homelessness; Z91.14 Patient's other noncompliance with medication regimen
CPT/HCPCS: 82962; 83735; 84100; 87081; 87086; 94640; 94660; 99285; G0480; J0690; J1644; J3370; J7040; J7050; J7060

== ENCOUNTER 2017-02-27 13:48 | Inpatient (IN) | payer OTHER, MEDICAID ==
[~2017-02-27] VITALS: Ht 154.9 cm; Wt 122.2 kg
[~2017-02-27 13:48] MED LIST changes: +CEFA2PLA9 IVP; +FURO20 PO; +LORA0.5T2 PO
[2017-02-27] MEDS ORDERED: LORazepam 2 MG TABLET PO ONE ×2 (14:15→23:45)
[2017-02-27 14:47] LABS: GLUCOSE,POINT OF CARE 117 MG/DL (70-110)
[2017-02-27 15:08] LABS: BASOPHILS % (AUTO) 0.2 % (0.0-2.0); EOSINOPHILS % (AUTO) 1.5 % (1.0-6.0); HEMATOCRIT 42.1 % (36-46); HEMOGLOBIN 14.4 g/dL (12.0-16.0); LYMPHOCYTES # (AUTO) 1.4 K/uL (1.0-4.8); LYMPHOCYTES % (AUTO) 16.4 % (22.0-44.0); MEAN CORPUSCULAR HEMOGLOBIN 32.5 pg (26.0-34.0); MEAN CORPUSCULAR HGB CONC 34.2 G/dL (31.0-37.0); MEAN CORPUSCULAR VOLUME 95 fL (80-100); MONOCYTES # (AUTO) 0.6 K/uL (0.1-1.0); MONOCYTES % (AUTO) 6.8 % (2.0-9.0); NEUTROPHILS # (AUTO) 6.5 K/uL (1.8-7.7); NEUTROPHILS % (AUTO) 75.1 % (40.0-70.0); PLATELET COUNT (AUTO) 213 K/uL (150-450); RED BLOOD CELL COUNT(AUTO) 4.43 MIL/uL (4.00-5.20); RED CELL DISTRIBUTION WIDTH 13.4 % (11.5-14.5)
[2017-02-27 15:21] LABS: ANION GAP 9 mmol/L (8-16); CARBON DIOXIDE 29 mmol/L (22-29); CHLORIDE 104 mmol/L (98-107); CREATININE 0.83 mg/dL (0.60-1.30); GLOMERULAR FILTR. RATE CALC > 60 mL/min (>60); GLUCOSE,RANDOM 114 mg/dL (70-110); POTASSIUM 3.6 mmol/L (3.5-5.1); SODIUM SERUM 142 mmol/L (136-145); UREA NITROGEN, BLOOD 17 mg/dL (7-18)
[2017-02-27 15:26] LABS: ALANINE AMINOTRANSFERASE 20 U/L (12-78); ALBUMIN 3.2 g/dL (3.4-5.0); ALKALINE PHOSPHATASE 72 U/L (46-116); ASPARTATE AMINOTRANSFERASE 17 U/L (15-37); BILIRUBIN,TOTAL 0.8 mg/dL (0.1-1.0); TOTAL PROTEIN, SERUM 7.7 g/dL (6.4-8.2)
[2017-02-27 15:33] LABS: B-TYPE NATRIURETIC PEPTIDE 33 pg/mL (0-100)
[2017-02-27] MEDS ORDERED: HALOPERIDOL 5 MG TABLET PO PRN (20:30)
[2017-02-27] MEDS ORDERED: ZOLPIDEM TARTRATE 10 MG TABLET PO PRN (20:30)
[2017-02-27] MEDS ORDERED: DiphenhydrAMINE HCL 25 MG CAPSULE PO ONE (23:45)
[2017-02-27] MEDS ORDERED: HALOPERIDOL 5 MG TABLET PO ONE (23:45)
[2017-02-28 05:44] LABS: CHOL/HDL RATIO 3.4 (3.9-5.7)
[2017-02-28 06:08] LABS: APPEARANCE,URINE CLEAR (CLEAR); BILIRUBIN,URINE NEGATIVE (NEGATIVE); GLUCOSE, URINE (UA) NEGATIVE (NEGATIVE); KETONES,URINE NEGATIVE (NEGATIVE); LEUKOCYTE ESTERASE ,URINE NEGATIVE (NEGATIVE); NITRATE,URINE NEGATIVE (NEGATIVE); OCCULT BLOOD,URINE NEGATIVE (NEGATIVE); PH,URINE 5.5 (5.0-8.0); PROTEIN,URINE NEGATIVE (NEGATIVE); UROBILINOGEN,URINE 0.2 mg/dL (<=1.0)
[2017-02-28 06:14] LABS: AMPHET/METH SCREEN,URINE NEGATIVE (NEGATIVE); BARBITURATE SCREEN, URINE NEGATIVE (NEGATIVE); BENZODIAZEPINES SCREEN,URINE NEGATIVE (NEGATIVE); CANNABINOID SCREEN,URINE NEGATIVE (NEGATIVE); COCAINE SCREEN,URINE NEGATIVE (NEGATIVE); METHADONE SCREEN, URINE NEGATIVE (NEGATIVE); OPIATE SCREEN,URINE NEGATIVE (NEGATIVE)
[2017-02-28 06:23] LABS: PHENCYCLIDINE SCREEN,URINE NEGATIVE (NEGATIVE)
[2017-02-28 09:22] LABS: GLUCOSE,POINT OF CARE 137 MG/DL (70-110)
[2017-02-28] MEDS: FUROSEMIDE 20 MG TABLET PO SCH (09:36)
[2017-02-28] MEDS: DOCUSATE SODIUM 100 MG CAPSULE PO SCH (09:36)
[2017-02-28] MEDS: CARVEDILOL 3.125 MG TABLET PO SCH (09:36)
[2017-02-28] MEDS: ASPIRIN 81 MG EC TABLET PO SCH (09:36)
[2017-02-28] MEDS: OMEPRAZOLE 20 MG CAPSULE PO SCH (09:37)
[2017-02-28] MEDS: MESALAMINE 400 MG DR CAPSULE PO SCH (09:37)
[2017-02-28] MEDS: CHOLECALCIFEROL (VIT D3) 1,000 UNITS TABLET PO SCH (09:37)
[2017-02-28] MEDS ORDERED: HALOPERIDOL LACTATE 5 MG/ML VIAL IM ONE (11:00)
[2017-02-28] MEDS ORDERED: LORazepam 2 MG/ML VIAL IM ONE (11:00)
[2017-02-28] MEDS ORDERED: DiphenhydrAMINE HCL 50 MG/ML VIAL IM ONE (11:00)
[2017-02-28 16:47] LABS: GLUCOSE,POINT OF CARE 110 MG/DL (70-110)
[2017-02-28] MEDS: MetFORMIN HCL 500 MG TABLET PO SCH (17:13)
[2017-03-01 03:00] VITALS: BP 104/64
[2017-03-01] MEDS: LORazepam 2 MG TABLET PO PRN (04:29)
[2017-03-01] MEDS ORDERED: INFLUENZA VIRUS VACCINE QVS 2017-18 (3YR+)/PF 60 MCG/0.5 ML SYRINGE IM ONE (06:00)
[2017-03-01] MEDS ORDERED: PNEUMOCOCCAL VACCINE POLYVALENT 0.5 ML VIAL [PPSV23] IM ONE (06:00)
[2017-03-01] MEDS: MetFORMIN HCL 500 MG TABLET PO SCH ×2 (06:58→16:24)
[2017-03-01] MEDS ORDERED: ONDANSETRON HCL 4 MG TABLET PO PRN (08:45)
[2017-03-01] MEDS ORDERED: BENZOCAINE/MENTHOL LOZENGE [8 LOZENGES/PACKET] MM PRN (08:45)
[2017-03-01] MEDS ORDERED: ACETAMINOPHEN 325 MG TABLET PO PRN (08:45)
[2017-03-01] MEDS ORDERED: PETROLATUM,WHITE 71 GM JELLY TP PRN (08:45)
[2017-03-01] MEDS ORDERED: MAGNESIUM HYDROXIDE SUSPENSION 30 ML UDCUP PO PRN (08:45)
[2017-03-01] MEDS ORDERED: LOPERAMIDE HCL 2 MG CAPSULE PO PRN (08:45)
[2017-03-01] MEDS ORDERED: CloNIDine HCL 0.1 MG TABLET PO PRN (08:45)
[2017-03-01] MEDS ORDERED: MAG HYDROX/AL HYDROX/SIMETH ES 30 ML SUSPENSION UDCUP PO PRN (08:45)
[2017-03-01] MEDS: CHOLECALCIFEROL (VIT D3) 1,000 UNITS TABLET PO SCH (09:24)
[2017-03-01] MEDS: FUROSEMIDE 20 MG TABLET PO SCH (09:24)
[2017-03-01] MEDS: OMEPRAZOLE 20 MG CAPSULE PO SCH (09:24)
[2017-03-01] MEDS: ASPIRIN 81 MG EC TABLET PO SCH (09:24)
[2017-03-01] MEDS: MESALAMINE 400 MG DR CAPSULE PO SCH (09:25)
[2017-03-01] MEDS: DOCUSATE SODIUM 100 MG CAPSULE PO SCH (09:26)
[2017-03-01 09:52] VITALS: BP 114/69
[2017-03-01] MEDS: CARVEDILOL 3.125 MG TABLET PO SCH (11:05)
[2017-03-01] MEDS: ASENAPINE 5 MG SUBLINGUAL TABLET SL SCH ×2 (13:14→20:42)
[2017-03-01 17:06] VITALS: BP 124/64
[2017-03-02] MEDS: MetFORMIN HCL 500 MG TABLET PO SCH ×2 (06:40→16:22)
[2017-03-02] MEDS: OMEPRAZOLE 20 MG CAPSULE PO SCH (08:32)
[2017-03-02] MEDS: DOCUSATE SODIUM 100 MG CAPSULE PO SCH (08:32)
[2017-03-02] MEDS: CHOLECALCIFEROL (VIT D3) 1,000 UNITS TABLET PO SCH (08:32)
[2017-03-02] MEDS: FUROSEMIDE 20 MG TABLET PO SCH (08:32)
[2017-03-02] MEDS: ASENAPINE 5 MG SUBLINGUAL TABLET SL SCH (08:32)
[2017-03-02] MEDS: ASPIRIN 81 MG EC TABLET PO SCH (08:32)
[2017-03-02] MEDS: CARVEDILOL 3.125 MG TABLET PO SCH (08:33)
[2017-03-02] MEDS: MESALAMINE 400 MG DR CAPSULE PO SCH (08:33)
[2017-03-02 08:36] VITALS: BP 131/85
[2017-03-02] MEDS: IBUPROFEN 600 MG TABLET PO PRN (08:44)
[2017-03-02 16:59] VITALS: BP 133/77
[2017-03-02] MEDS: ASENAPINE 10 MG SUBLINGUAL TABLET SL SCH (20:16)
[2017-03-03] MEDS: LORazepam 2 MG TABLET PO PRN (03:05)
[2017-03-03] MEDS: ALBUTEROL SULFATE HFA 90 MCG/PUFF 8 GM INHALER IH PRN (03:08)
[2017-03-03] MEDS: MetFORMIN HCL 500 MG TABLET PO SCH ×2 (06:59→16:29)
[2017-03-03 08:13] VITALS: BP 159/78
[2017-03-03] MEDS: DOCUSATE SODIUM 100 MG CAPSULE PO SCH (08:42)
[2017-03-03] MEDS: FUROSEMIDE 20 MG TABLET PO SCH ×2 (08:42→08:50)
[2017-03-03] MEDS: CHOLECALCIFEROL (VIT D3) 1,000 UNITS TABLET PO SCH (08:42)
[2017-03-03] MEDS: OMEPRAZOLE 20 MG CAPSULE PO SCH (08:42)
[2017-03-03] MEDS: CARVEDILOL 3.125 MG TABLET PO SCH (08:42)
[2017-03-03] MEDS: ASPIRIN 81 MG EC TABLET PO SCH (08:43)
[2017-03-03] MEDS: ASENAPINE 10 MG SUBLINGUAL TABLET SL SCH ×2 (08:43→20:11)
[2017-03-03] MEDS: MESALAMINE 400 MG DR CAPSULE PO SCH (08:43)
[2017-03-03 16:34] VITALS: BP 101/72
[2017-03-03 16:47] LABS: GLUCOMETER DEV NAME(LOC) 3EC; GLUCOSE,POINT OF CARE 172 MG/DL (70-110)
[2017-03-04] MEDS: ALBUTEROL SULFATE HFA 90 MCG/PUFF 8 GM INHALER IH PRN (04:15)
[2017-03-04 05:58] LABS: GLUCOMETER DEV NAME(LOC) 3EC; GLUCOSE,POINT OF CARE 111 MG/DL (70-110)
[2017-03-04] MEDS: MetFORMIN HCL 500 MG TABLET PO SCH ×2 (06:48→16:39)
[2017-03-04 08:12] VITALS: BP 135/77
[2017-03-04] MEDS: CARVEDILOL 3.125 MG TABLET PO SCH (08:49)
[2017-03-04] MEDS: OMEPRAZOLE 20 MG CAPSULE PO SCH (08:49)
[2017-03-04] MEDS: ASPIRIN 81 MG EC TABLET PO SCH (08:49)
[2017-03-04] MEDS: ASENAPINE 10 MG SUBLINGUAL TABLET SL SCH ×2 (08:49→20:09)
[2017-03-04] MEDS: CHOLECALCIFEROL (VIT D3) 1,000 UNITS TABLET PO SCH (08:49)
[2017-03-04] MEDS: MESALAMINE 400 MG DR CAPSULE PO SCH (08:49)
[2017-03-04] MEDS: DOCUSATE SODIUM 100 MG CAPSULE PO SCH (08:54)
[2017-03-04] MEDS: FUROSEMIDE 20 MG TABLET PO SCH (08:54)
[2017-03-04 16:29] VITALS: BP 153/88
[2017-03-04 16:47] LABS: GLUCOMETER DEV NAME(LOC) 3EC; GLUCOSE,POINT OF CARE 132 MG/DL (70-110)
[2017-03-05] MEDS: LORazepam 2 MG TABLET PO PRN (00:43)
[2017-03-05 06:17] LABS: GLUCOMETER DEV NAME(LOC) 3EC; GLUCOSE,POINT OF CARE 116 MG/DL (70-110)
[2017-03-05] MEDS: MetFORMIN HCL 500 MG TABLET PO SCH ×2 (07:05→17:37)
[2017-03-05] MEDS: CARVEDILOL 3.125 MG TABLET PO SCH (08:55)
[2017-03-05] MEDS: MESALAMINE 400 MG DR CAPSULE PO SCH (08:55)
[2017-03-05] MEDS: DOCUSATE SODIUM 100 MG CAPSULE PO SCH (08:56)
[2017-03-05] MEDS: OMEPRAZOLE 20 MG CAPSULE PO SCH (08:56)
[2017-03-05] MEDS: FUROSEMIDE 20 MG TABLET PO SCH (08:56)
[2017-03-05] MEDS: ASPIRIN 81 MG EC TABLET PO SCH (08:56)
[2017-03-05] MEDS: CHOLECALCIFEROL (VIT D3) 1,000 UNITS TABLET PO SCH (08:56)
[2017-03-05] MEDS: ASENAPINE 10 MG SUBLINGUAL TABLET SL SCH ×2 (08:56→20:28)
[2017-03-05 08:59] VITALS: BP 140/89
[2017-03-05 09:00] VITALS: BP 140/89
[2017-03-05 16:26] LABS: GLUCOMETER DEV NAME(LOC) 3EC; GLUCOSE,POINT OF CARE 146 MG/DL (70-110)
[2017-03-06 05:55] VITALS: BP 160/77
[2017-03-06] MEDS: IBUPROFEN 600 MG TABLET PO PRN ×2 (06:01→16:27)
[2017-03-06 06:12] LABS: GLUCOMETER DEV NAME(LOC) 3EC; GLUCOSE,POINT OF CARE 160 MG/DL (70-110)
[2017-03-06] MEDS: MetFORMIN HCL 500 MG TABLET PO SCH ×2 (06:58→16:30)
[2017-03-06] MEDS: BACITRACIN 28.4 GM OINTMENT TP PRN (07:20)
[2017-03-06] MEDS: DOCUSATE SODIUM 100 MG CAPSULE PO SCH (08:04)
[2017-03-06] MEDS: CARVEDILOL 3.125 MG TABLET PO SCH (08:05)
[2017-03-06] MEDS: CHOLECALCIFEROL (VIT D3) 1,000 UNITS TABLET PO SCH (08:05)
[2017-03-06] MEDS: OMEPRAZOLE 20 MG CAPSULE PO SCH (08:05)
[2017-03-06] MEDS: MESALAMINE 400 MG DR CAPSULE PO SCH (08:05)
[2017-03-06] MEDS: ASENAPINE 10 MG SUBLINGUAL TABLET SL SCH ×2 (08:06→21:07)
[2017-03-06] MEDS: ASPIRIN 81 MG EC TABLET PO SCH (08:07)
[2017-03-06] MEDS: FUROSEMIDE 20 MG TABLET PO SCH (08:07)
[2017-03-06 08:57] VITALS: BP 142/76
[2017-03-06 16:25] VITALS: BP 119/68
[2017-03-06 17:25] VITALS: BP 121/71
[2017-03-06 18:12] LABS: GLUCOMETER DEV NAME(LOC) 3EC; GLUCOSE,POINT OF CARE 114 MG/DL (70-110)
[2017-03-07] MEDS: BACITRACIN 28.4 GM OINTMENT TP PRN (01:00)
[2017-03-07 04:11] VITALS: BP 120/81
[2017-03-07] MEDS: IBUPROFEN 600 MG TABLET PO PRN ×2 (04:11→13:18)
[2017-03-07 06:13] LABS: GLUCOMETER DEV NAME(LOC) 3EC; GLUCOSE,POINT OF CARE 121 MG/DL (70-110)
[2017-03-07] MEDS: MetFORMIN HCL 500 MG TABLET PO SCH ×2 (06:45→16:41)
[2017-03-07] MEDS: DOCUSATE SODIUM 100 MG CAPSULE PO SCH (08:09)
[2017-03-07] MEDS: ASPIRIN 81 MG EC TABLET PO SCH (08:10)
[2017-03-07] MEDS: FUROSEMIDE 20 MG TABLET PO SCH (08:10)
[2017-03-07] MEDS: CARVEDILOL 3.125 MG TABLET PO SCH (08:10)
[2017-03-07] MEDS: MESALAMINE 400 MG DR CAPSULE PO SCH (08:10)
[2017-03-07] MEDS: CHOLECALCIFEROL (VIT D3) 1,000 UNITS TABLET PO SCH (08:11)
[2017-03-07] MEDS: ASENAPINE 10 MG SUBLINGUAL TABLET SL SCH ×2 (08:11→20:19)
[2017-03-07] MEDS: OMEPRAZOLE 20 MG CAPSULE PO SCH (08:11)
[2017-03-07 08:21] VITALS: BP 125/68
[2017-03-07 13:18] VITALS: BP 131/84
[2017-03-07 16:00] VITALS: BP 114/69
[2017-03-07 16:47] LABS: GLUCOMETER DEV NAME(LOC) 3EC; GLUCOSE,POINT OF CARE 165 MG/DL (70-110)
[2017-03-08] VITALS: BP 141/88
[2017-03-08] MEDS: IBUPROFEN 600 MG TABLET PO PRN (00:01)
[2017-03-08] MEDS: LORazepam 2 MG TABLET PO PRN (00:01)
[2017-03-08] MEDS: MetFORMIN HCL 500 MG TABLET PO SCH ×2 (07:16→17:29)
[2017-03-08] MEDS: DOCUSATE SODIUM 100 MG CAPSULE PO SCH (08:27)
[2017-03-08] MEDS: OMEPRAZOLE 20 MG CAPSULE PO SCH (08:27)
[2017-03-08] MEDS: CHOLECALCIFEROL (VIT D3) 1,000 UNITS TABLET PO SCH (08:28)
[2017-03-08] MEDS: FUROSEMIDE 20 MG TABLET PO SCH (08:28)
[2017-03-08] MEDS: ASPIRIN 81 MG EC TABLET PO SCH (08:28)
[2017-03-08] MEDS: MESALAMINE 400 MG DR CAPSULE PO SCH (08:28)
[2017-03-08] MEDS: ASENAPINE 10 MG SUBLINGUAL TABLET SL SCH ×2 (08:29→20:22)
[2017-03-08] MEDS: CARVEDILOL 3.125 MG TABLET PO SCH (08:29)
[2017-03-08 09:16] VITALS: BP 155/71
[2017-03-08 16:24] VITALS: BP 145/82
[2017-03-08 17:12] LABS: GLUCOMETER DEV NAME(LOC) 3EC; GLUCOSE,POINT OF CARE 83 MG/DL (70-110)
[2017-03-08 17:17] LABS: GLUCOMETER DEV NAME(LOC) 3EC; GLUCOSE,POINT OF CARE 144 MG/DL (70-110)
[2017-03-08] MEDS: HYDROCORTISONE 1% 30 GM CREAM TP SCH (17:30)
[2017-03-09] MEDS: MetFORMIN HCL 500 MG TABLET PO SCH ×2 (07:08→18:44)
[2017-03-09] MEDS: ASPIRIN 81 MG EC TABLET PO SCH (08:05)
[2017-03-09] MEDS: DOCUSATE SODIUM 100 MG CAPSULE PO SCH (08:05)
[2017-03-09] MEDS: CHOLECALCIFEROL (VIT D3) 1,000 UNITS TABLET PO SCH (08:05)
[2017-03-09] MEDS: OMEPRAZOLE 20 MG CAPSULE PO SCH (08:05)
[2017-03-09] MEDS: MESALAMINE 400 MG DR CAPSULE PO SCH (08:06)
[2017-03-09] MEDS: ASENAPINE 10 MG SUBLINGUAL TABLET SL SCH ×2 (08:06→21:20)
[2017-03-09] MEDS: CARVEDILOL 3.125 MG TABLET PO SCH (08:06)
[2017-03-09] MEDS: HYDROCORTISONE 1% 30 GM CREAM TP SCH ×2 (08:12→17:20)
[2017-03-09] MEDS: ALBUTEROL SULFATE HFA 90 MCG/PUFF 8 GM INHALER IH PRN (08:13)
[2017-03-09] MEDS: FUROSEMIDE 20 MG TABLET PO SCH (08:19)
[2017-03-09 09:57] VITALS: BP 125/70
[2017-03-09 16:00] VITALS: BP 118/68
[2017-03-09 16:52] LABS: GLUCOMETER DEV NAME(LOC) 3EC; GLUCOSE,POINT OF CARE 125 MG/DL (70-110)
[2017-03-09 16:52] LABS: GLUCOMETER DEV NAME(LOC) 3EC; GLUCOSE,POINT OF CARE 112 MG/DL (70-110)
[2017-03-10 04:20] VITALS: BP 152/83
[2017-03-10] MEDS: IBUPROFEN 600 MG TABLET PO PRN (04:31)
[2017-03-10] MEDS: ALBUTEROL SULFATE HFA 90 MCG/PUFF 8 GM INHALER IH PRN (04:42)
[2017-03-10 06:52] LABS: GLUCOMETER DEV NAME(LOC) 3EC; GLUCOSE,POINT OF CARE 89 MG/DL (70-110)
[2017-03-10] MEDS: MetFORMIN HCL 500 MG TABLET PO SCH ×2 (07:04→16:31)
[2017-03-10] MEDS: CHOLECALCIFEROL (VIT D3) 1,000 UNITS TABLET PO SCH (08:16)
[2017-03-10] MEDS: DOCUSATE SODIUM 100 MG CAPSULE PO SCH (08:16)
[2017-03-10] MEDS: ASPIRIN 81 MG EC TABLET PO SCH (08:16)
[2017-03-10] MEDS: OMEPRAZOLE 20 MG CAPSULE PO SCH (08:16)
[2017-03-10] MEDS: CARVEDILOL 3.125 MG TABLET PO SCH (08:17)
[2017-03-10] MEDS: HYDROCORTISONE 1% 30 GM CREAM TP SCH ×2 (08:17→16:31)
[2017-03-10] MEDS: MESALAMINE 400 MG DR CAPSULE PO SCH (08:17)
[2017-03-10] MEDS: ASENAPINE 10 MG SUBLINGUAL TABLET SL SCH ×2 (08:17→20:08)
[2017-03-10] MEDS: FUROSEMIDE 20 MG TABLET PO SCH (08:41)
[2017-03-10 09:07] VITALS: BP 102/62
[2017-03-10 16:17] LABS: GLUCOMETER DEV NAME(LOC) 3EC; GLUCOSE,POINT OF CARE 113 MG/DL (70-110)
[2017-03-10 16:21] VITALS: BP 141/70
[2017-03-11 04:30] VITALS: BP 142/77
[2017-03-11] MEDS: ALBUTEROL SULFATE HFA 90 MCG/PUFF 8 GM INHALER IH PRN (04:37)
[2017-03-11] MEDS: BACITRACIN 28.4 GM OINTMENT TP PRN (04:37)
[2017-03-11] MEDS: IBUPROFEN 600 MG TABLET PO PRN ×2 (04:37→13:22)
[2017-03-11 05:52] LABS: GLUCOMETER DEV NAME(LOC) 3EC; GLUCOSE,POINT OF CARE 144 MG/DL (70-110)
[2017-03-11] MEDS: MetFORMIN HCL 500 MG TABLET PO SCH ×2 (07:01→16:40)
[2017-03-11] MEDS: OMEPRAZOLE 20 MG CAPSULE PO SCH (08:22)
[2017-03-11] MEDS: CARVEDILOL 3.125 MG TABLET PO SCH (08:22)
[2017-03-11] MEDS: MESALAMINE 400 MG DR CAPSULE PO SCH (08:22)
[2017-03-11] MEDS: FUROSEMIDE 20 MG TABLET PO SCH (08:22)
[2017-03-11] MEDS: DOCUSATE SODIUM 100 MG CAPSULE PO SCH (08:22)
[2017-03-11] MEDS: ASENAPINE 10 MG SUBLINGUAL TABLET SL SCH ×2 (08:22→20:54)
[2017-03-11] MEDS: ASPIRIN 81 MG EC TABLET PO SCH (08:22)
[2017-03-11] MEDS: CHOLECALCIFEROL (VIT D3) 1,000 UNITS TABLET PO SCH (08:22)
[2017-03-11] MEDS: HYDROCORTISONE 1% 30 GM CREAM TP SCH ×2 (08:23→16:40)
[2017-03-11 08:33] VITALS: BP 133/73
[2017-03-11] MEDS ORDERED: PHENYLEPHRINE/SHK LV/MIN OIL/PET 57 GM OINTMENT TP PRN (11:45)
[2017-03-11 16:17] VITALS: BP 138/78
[2017-03-11 16:28] LABS: GLUCOMETER DEV NAME(LOC) 3EC; GLUCOSE,POINT OF CARE 109 MG/DL (70-110)
[2017-03-11] MEDS: PHENYLEPHRINE/SHK LV/MIN OIL/PET 57 GM OINTMENT TP SCH (16:42)
[2017-03-12 03:30] VITALS: BP 135/74
[2017-03-12] MEDS: IBUPROFEN 600 MG TABLET PO PRN (03:33)
[2017-03-12] MEDS: MetFORMIN HCL 500 MG TABLET PO SCH ×2 (07:01→18:12)
[2017-03-12 08:10] VITALS: BP 136/76
[2017-03-12] MEDS: CARVEDILOL 3.125 MG TABLET PO SCH (08:32)
[2017-03-12] MEDS: ASPIRIN 81 MG EC TABLET PO SCH (08:32)
[2017-03-12] MEDS: CHOLECALCIFEROL (VIT D3) 1,000 UNITS TABLET PO SCH (08:33)
[2017-03-12] MEDS: OMEPRAZOLE 20 MG CAPSULE PO SCH (08:33)
[2017-03-12] MEDS: ASENAPINE 10 MG SUBLINGUAL TABLET SL SCH ×2 (08:33→20:33)
[2017-03-12] MEDS: MESALAMINE 400 MG DR CAPSULE PO SCH (08:33)
[2017-03-12] MEDS: HYDROCORTISONE 1% 30 GM CREAM TP SCH ×2 (08:36→18:12)
[2017-03-12] MEDS: ALBUTEROL SULFATE HFA 90 MCG/PUFF 8 GM INHALER IH PRN (08:38)
[2017-03-12] MEDS: FUROSEMIDE 20 MG TABLET PO SCH (08:41)
[2017-03-12] MEDS: DOCUSATE SODIUM 100 MG CAPSULE PO SCH (08:41)
[2017-03-12] MEDS: PHENYLEPHRINE/SHK LV/MIN OIL/PET 57 GM OINTMENT TP SCH (09:00)
[2017-03-12 11:33] LABS: GLUCOMETER DEV NAME(LOC) 3EC; GLUCOSE,POINT OF CARE 155 MG/DL (70-110)
[2017-03-12 16:00] VITALS: BP 155/76
[2017-03-12] MEDS ORDERED: PHENYLEPHRINE/SHK LV/MIN OIL/PET 57 GM OINTMENT TP PRN (16:30)
[2017-03-12 18:17] LABS: GLUCOMETER DEV NAME(LOC) 3EC; GLUCOSE,POINT OF CARE 136 MG/DL (70-110)
[2017-03-13 06:22] LABS: GLUCOMETER DEV NAME(LOC) 3EC; GLUCOSE,POINT OF CARE 101 MG/DL (70-110)
[2017-03-13] MEDS: MetFORMIN HCL 500 MG TABLET PO SCH ×2 (06:33→17:03)
[2017-03-13] MEDS: ASPIRIN 81 MG EC TABLET PO SCH (08:06)
[2017-03-13] MEDS: FUROSEMIDE 20 MG TABLET PO SCH (08:06)
[2017-03-13] MEDS: OMEPRAZOLE 20 MG CAPSULE PO SCH (08:06)
[2017-03-13] MEDS: DOCUSATE SODIUM 100 MG CAPSULE PO SCH (08:06)
[2017-03-13] MEDS: CARVEDILOL 3.125 MG TABLET PO SCH (08:06)
[2017-03-13] MEDS: ASENAPINE 10 MG SUBLINGUAL TABLET SL SCH ×2 (08:06→20:05)
[2017-03-13] MEDS: CHOLECALCIFEROL (VIT D3) 1,000 UNITS TABLET PO SCH (08:06)
[2017-03-13] MEDS: MESALAMINE 400 MG DR CAPSULE PO SCH (08:06)
[2017-03-13] MEDS: HYDROCORTISONE 1% 30 GM CREAM TP SCH ×2 (08:07→17:02)
[2017-03-13 08:47] VITALS: BP 133/77
[2017-03-13] MEDS: SODIUM CHLORIDE 0.65% 44 ML NASAL SPRAY NASAL SCH ×2 (13:00→17:00)
[2017-03-13 16:17] LABS: GLUCOMETER DEV NAME(LOC) 3EC; GLUCOSE,POINT OF CARE 131 MG/DL (70-110)
[2017-03-13 18:41] VITALS: BP 148/88
[2017-03-13] MEDS: IBUPROFEN 600 MG TABLET PO PRN (18:41)
[2017-03-13] MEDS: ALBUTEROL SULFATE HFA 90 MCG/PUFF 8 GM INHALER IH PRN (21:38)
[2017-03-14 01:41] VITALS: BP 137/78
[2017-03-14] MEDS: IBUPROFEN 600 MG TABLET PO PRN ×2 (01:41→20:04)
[2017-03-14 06:22] LABS: GLUCOMETER DEV NAME(LOC) 3EC; GLUCOSE,POINT OF CARE 110 MG/DL (70-110)
[2017-03-14] MEDS: MetFORMIN HCL 500 MG TABLET PO SCH ×2 (06:47→16:31)
[2017-03-14] MEDS: FUROSEMIDE 20 MG TABLET PO SCH (08:32)
[2017-03-14] MEDS: OMEPRAZOLE 20 MG CAPSULE PO SCH (08:32)
[2017-03-14] MEDS: CHOLECALCIFEROL (VIT D3) 1,000 UNITS TABLET PO SCH (08:32)
[2017-03-14] MEDS: ASPIRIN 81 MG EC TABLET PO SCH (08:33)
[2017-03-14] MEDS: CARVEDILOL 3.125 MG TABLET PO SCH (08:33)
[2017-03-14] MEDS: MESALAMINE 400 MG DR CAPSULE PO SCH (08:34)
[2017-03-14] MEDS: SODIUM CHLORIDE 0.65% 44 ML NASAL SPRAY NASAL SCH ×3 (08:34→16:31)
[2017-03-14] MEDS: ASENAPINE 10 MG SUBLINGUAL TABLET SL SCH ×2 (08:35→20:13)
[2017-03-14] MEDS: DOCUSATE SODIUM 100 MG CAPSULE PO SCH (08:36)
[2017-03-14] MEDS: HYDROCORTISONE 1% 30 GM CREAM TP SCH ×2 (09:10→16:31)
[2017-03-14 16:17] LABS: GLUCOMETER DEV NAME(LOC) 3EC; GLUCOSE,POINT OF CARE 128 MG/DL (70-110)
[2017-03-14 16:23] VITALS: BP 114/69
[2017-03-15 03:15] VITALS: BP 132/86
[2017-03-15] MEDS: IBUPROFEN 600 MG TABLET PO PRN (03:18)
[2017-03-15 06:19] LABS: GLUCOMETER DEV NAME(LOC) 3EC; GLUCOSE,POINT OF CARE 111 MG/DL (70-110)
[2017-03-15] MEDS: MetFORMIN HCL 500 MG TABLET PO SCH ×2 (06:36→17:02)
[2017-03-15] MEDS: SODIUM CHLORIDE 0.65% 44 ML NASAL SPRAY NASAL SCH ×3 (08:20→17:02)
[2017-03-15] MEDS: MESALAMINE 400 MG DR CAPSULE PO SCH (08:20)
[2017-03-15] MEDS: CHOLECALCIFEROL (VIT D3) 1,000 UNITS TABLET PO SCH (08:20)
[2017-03-15] MEDS: OMEPRAZOLE 20 MG CAPSULE PO SCH (08:20)
[2017-03-15] MEDS: ASENAPINE 10 MG SUBLINGUAL TABLET SL SCH ×2 (08:20→21:09)
[2017-03-15] MEDS: FUROSEMIDE 20 MG TABLET PO SCH (08:20)
[2017-03-15] MEDS: ASPIRIN 81 MG EC TABLET PO SCH (08:20)
[2017-03-15] MEDS: DOCUSATE SODIUM 100 MG CAPSULE PO SCH (08:20)
[2017-03-15] MEDS: CARVEDILOL 3.125 MG TABLET PO SCH (08:21)
[2017-03-15] MEDS: HYDROCORTISONE 1% 30 GM CREAM TP SCH ×2 (08:29→17:02)
[2017-03-15 09:27] VITALS: BP 124/70
[2017-03-15 16:33] LABS: GLUCOMETER DEV NAME(LOC) 3EC; GLUCOSE,POINT OF CARE 142 MG/DL (70-110)
[2017-03-16] MEDS: IBUPROFEN 600 MG TABLET PO PRN (00:10)
[2017-03-16 00:12] VITALS: BP 132/75
[2017-03-16] MEDS: MetFORMIN HCL 500 MG TABLET PO SCH ×2 (06:34→17:34)
[2017-03-16 06:37] LABS: GLUCOMETER DEV NAME(LOC) 3EC; GLUCOSE,POINT OF CARE 122 MG/DL (70-110)
[2017-03-16] MEDS: DOCUSATE SODIUM 100 MG CAPSULE PO SCH (08:28)
[2017-03-16] MEDS: OMEPRAZOLE 20 MG CAPSULE PO SCH (08:29)
[2017-03-16] MEDS: ASPIRIN 81 MG EC TABLET PO SCH (08:29)
[2017-03-16] MEDS: SODIUM CHLORIDE 0.65% 44 ML NASAL SPRAY NASAL SCH ×3 (08:29→17:33)
[2017-03-16] MEDS: FUROSEMIDE 20 MG TABLET PO SCH (08:29)
[2017-03-16] MEDS: CHOLECALCIFEROL (VIT D3) 1,000 UNITS TABLET PO SCH (08:29)
[2017-03-16] MEDS: ASENAPINE 10 MG SUBLINGUAL TABLET SL SCH ×2 (08:29→20:26)
[2017-03-16] MEDS: MESALAMINE 400 MG DR CAPSULE PO SCH (08:29)
[2017-03-16] MEDS: CARVEDILOL 3.125 MG TABLET PO SCH (08:30)
[2017-03-16] MEDS: HYDROCORTISONE 1% 30 GM CREAM TP SCH ×2 (08:30→17:33)
[2017-03-16] MEDS: LORazepam 2 MG TABLET PO PRN (08:33)
[2017-03-16 08:52] VITALS: BP 126/78
[2017-03-16 17:53] LABS: GLUCOMETER DEV NAME(LOC) 3EC; GLUCOSE,POINT OF CARE 92 MG/DL (70-110)
[2017-03-17 04:46] VITALS: BP 145/81
[2017-03-17 06:22] LABS: GLUCOMETER DEV NAME(LOC) 3EC; GLUCOSE,POINT OF CARE 78 MG/DL (70-110)
[2017-03-17] MEDS: MetFORMIN HCL 500 MG TABLET PO SCH ×2 (06:50→16:09)
[2017-03-17] MEDS: FUROSEMIDE 20 MG TABLET PO SCH (08:32)
[2017-03-17] MEDS: OMEPRAZOLE 20 MG CAPSULE PO SCH (08:32)
[2017-03-17] MEDS: DOCUSATE SODIUM 100 MG CAPSULE PO SCH (08:32)
[2017-03-17] MEDS: CHOLECALCIFEROL (VIT D3) 1,000 UNITS TABLET PO SCH (08:32)
[2017-03-17] MEDS: ASPIRIN 81 MG EC TABLET PO SCH (08:32)
[2017-03-17] MEDS: MESALAMINE 400 MG DR CAPSULE PO SCH (08:33)
[2017-03-17] MEDS: SODIUM CHLORIDE 0.65% 44 ML NASAL SPRAY NASAL SCH ×3 (08:33→16:09)
[2017-03-17] MEDS: CARVEDILOL 3.125 MG TABLET PO SCH (08:33)
[2017-03-17] MEDS: HYDROCORTISONE 1% 30 GM CREAM TP SCH ×2 (08:34→16:09)
[2017-03-17] MEDS: ASENAPINE 10 MG SUBLINGUAL TABLET SL SCH ×2 (08:34→20:04)
[2017-03-17 09:00] VITALS: BP 128/78
[2017-03-17 16:09] VITALS: BP 124/93
[2017-03-17] MEDS: IBUPROFEN 600 MG TABLET PO PRN (16:09)
[2017-03-17 17:38] LABS: GLUCOMETER DEV NAME(LOC) 3EC; GLUCOSE,POINT OF CARE 98 MG/DL (70-110)
[2017-03-18 04:51] VITALS: BP 134/74
[2017-03-18] MEDS: IBUPROFEN 600 MG TABLET PO PRN (05:44)
[2017-03-18 06:12] LABS: GLUCOMETER DEV NAME(LOC) 3EC; GLUCOSE,POINT OF CARE 96 MG/DL (70-110)
[2017-03-18] MEDS: MetFORMIN HCL 500 MG TABLET PO SCH ×2 (07:09→17:42)
[2017-03-18] MEDS: LORazepam 2 MG TABLET PO PRN (07:48)
[2017-03-18] MEDS: CARVEDILOL 3.125 MG TABLET PO SCH (08:32)
[2017-03-18] MEDS: MESALAMINE 400 MG DR CAPSULE PO SCH (08:32)
[2017-03-18] MEDS: OMEPRAZOLE 20 MG CAPSULE PO SCH (08:32)
[2017-03-18] MEDS: CHOLECALCIFEROL (VIT D3) 1,000 UNITS TABLET PO SCH (08:33)
[2017-03-18] MEDS: SODIUM CHLORIDE 0.65% 44 ML NASAL SPRAY NASAL SCH ×3 (08:33→17:41)
[2017-03-18] MEDS: DOCUSATE SODIUM 100 MG CAPSULE PO SCH (08:33)
[2017-03-18] MEDS: ASENAPINE 10 MG SUBLINGUAL TABLET SL SCH ×2 (08:33→21:08)
[2017-03-18] MEDS: HYDROCORTISONE 1% 30 GM CREAM TP SCH ×2 (08:33→17:42)
[2017-03-18] MEDS: FUROSEMIDE 20 MG TABLET PO SCH (08:34)
[2017-03-18] MEDS: ASPIRIN 81 MG EC TABLET PO SCH (08:34)
[2017-03-18 08:49] VITALS: BP 139/88
[2017-03-18 16:08] VITALS: BP 129/67
[2017-03-18 17:47] LABS: GLUCOMETER DEV NAME(LOC) 3EC; GLUCOSE,POINT OF CARE 102 MG/DL (70-110)
[2017-03-19 01:18] VITALS: BP 123/58
[2017-03-19] MEDS: IBUPROFEN 600 MG TABLET PO PRN (01:25)
[2017-03-19 06:32] LABS: GLUCOMETER DEV NAME(LOC) 3EC; GLUCOSE,POINT OF CARE 132 MG/DL (70-110)
[2017-03-19] MEDS: SODIUM CHLORIDE 0.65% 44 ML NASAL SPRAY NASAL SCH ×3 (06:56→17:40)
[2017-03-19] MEDS: ALBUTEROL SULFATE HFA 90 MCG/PUFF 8 GM INHALER IH PRN (06:56)
[2017-03-19] MEDS: MetFORMIN HCL 500 MG TABLET PO SCH ×2 (07:01→17:41)
[2017-03-19] MEDS: DOCUSATE SODIUM 100 MG CAPSULE PO SCH (08:35)
[2017-03-19] MEDS: FUROSEMIDE 20 MG TABLET PO SCH (08:35)
[2017-03-19] MEDS: OMEPRAZOLE 20 MG CAPSULE PO SCH (08:35)
[2017-03-19] MEDS: ASPIRIN 81 MG EC TABLET PO SCH (08:35)
[2017-03-19] MEDS: CHOLECALCIFEROL (VIT D3) 1,000 UNITS TABLET PO SCH (08:35)
[2017-03-19] MEDS: MESALAMINE 400 MG DR CAPSULE PO SCH (08:36)
[2017-03-19] MEDS: CARVEDILOL 3.125 MG TABLET PO SCH (08:36)
[2017-03-19] MEDS: ASENAPINE 10 MG SUBLINGUAL TABLET SL SCH ×2 (08:37→20:46)
[2017-03-19] MEDS: HYDROCORTISONE 1% 30 GM CREAM TP SCH ×2 (08:45→17:40)
[2017-03-19 09:09] VITALS: BP 107/57
[2017-03-19 17:43] LABS: GLUCOMETER DEV NAME(LOC) 3EC; GLUCOSE,POINT OF CARE 114 MG/DL (70-110)
[2017-03-19 21:24] VITALS: BP 115/66
[2017-03-20] MEDS: IBUPROFEN 600 MG TABLET PO PRN ×2 (01:06→14:17)
[2017-03-20 01:30] VITALS: BP 128/74
[2017-03-20 05:53] LABS: GLUCOMETER DEV NAME(LOC) 3EC; GLUCOSE,POINT OF CARE 160 MG/DL (70-110)
[2017-03-20] MEDS: MetFORMIN HCL 500 MG TABLET PO SCH ×2 (07:09→16:38)
[2017-03-20 08:30] VITALS: BP 113/63
[2017-03-20] MEDS: CHOLECALCIFEROL (VIT D3) 1,000 UNITS TABLET PO SCH (09:27)
[2017-03-20] MEDS: SODIUM CHLORIDE 0.65% 44 ML NASAL SPRAY NASAL SCH ×3 (09:27→16:37)
[2017-03-20] MEDS: OMEPRAZOLE 20 MG CAPSULE PO SCH (09:28)
[2017-03-20] MEDS: FUROSEMIDE 20 MG TABLET PO SCH (09:28)
[2017-03-20] MEDS: CARVEDILOL 3.125 MG TABLET PO SCH (09:28)
[2017-03-20] MEDS: ASPIRIN 81 MG EC TABLET PO SCH (09:28)
[2017-03-20] MEDS: ASENAPINE 10 MG SUBLINGUAL TABLET SL SCH ×2 (09:28→20:37)
[2017-03-20] MEDS: DOCUSATE SODIUM 100 MG CAPSULE PO SCH (09:28)
[2017-03-20] MEDS: MESALAMINE 400 MG DR CAPSULE PO SCH (09:28)
[2017-03-20] MEDS: HYDROCORTISONE 1% 30 GM CREAM TP SCH ×2 (09:29→16:41)
[2017-03-20 14:15] VITALS: BP 116/74
[2017-03-20 16:00] VITALS: BP 112/68
[2017-03-20] MEDS: DIVALPROEX SODIUM 500 MG ER TABLET PO SCH (16:41)
[2017-03-20 17:08] LABS: GLUCOMETER DEV NAME(LOC) 3EC; GLUCOSE,POINT OF CARE 136 MG/DL (70-110)
[2017-03-20 22:07] LABS: GLUCOMETER DEV NAME(LOC) 3EC; GLUCOSE,POINT OF CARE 125 MG/DL (70-110)
[2017-03-21 01:54] VITALS: BP 123/74
[2017-03-21] MEDS: IBUPROFEN 600 MG TABLET PO PRN (01:54)
[2017-03-21 05:58] LABS: GLUCOMETER DEV NAME(LOC) 3EC; GLUCOSE,POINT OF CARE 128 MG/DL (70-110)
[2017-03-21] MEDS: MetFORMIN HCL 500 MG TABLET PO SCH ×2 (06:59→17:08)
[2017-03-21 08:52] VITALS: BP 124/65
[2017-03-21] MEDS: FUROSEMIDE 20 MG TABLET PO SCH (09:00)
[2017-03-21] MEDS: DIVALPROEX SODIUM 500 MG ER TABLET PO SCH ×2 (09:00→17:00)
[2017-03-21] MEDS: ASPIRIN 81 MG EC TABLET PO SCH (09:18)
[2017-03-21] MEDS: ASENAPINE 10 MG SUBLINGUAL TABLET SL SCH ×2 (09:19→20:15)
[2017-03-21] MEDS: DOCUSATE SODIUM 100 MG CAPSULE PO SCH (09:19)
[2017-03-21] MEDS: OMEPRAZOLE 20 MG CAPSULE PO SCH (09:19)
[2017-03-21] MEDS: SODIUM CHLORIDE 0.65% 44 ML NASAL SPRAY NASAL SCH ×3 (09:19→16:07)
[2017-03-21] MEDS: CHOLECALCIFEROL (VIT D3) 1,000 UNITS TABLET PO SCH (09:19)
[2017-03-21] MEDS: CARVEDILOL 3.125 MG TABLET PO SCH (09:20)
[2017-03-21] MEDS: MESALAMINE 400 MG DR CAPSULE PO SCH (09:20)
[2017-03-21] MEDS: HYDROCORTISONE 1% 30 GM CREAM TP SCH ×2 (09:21→16:08)
[2017-03-21 15:58] LABS: GLUCOMETER DEV NAME(LOC) 3EC; GLUCOSE,POINT OF CARE 127 MG/DL (70-110)
[2017-03-21 17:22] VITALS: BP 126/78
[2017-03-22] MEDS: IBUPROFEN 600 MG TABLET PO PRN ×2 (01:31→12:57)
[2017-03-22 01:33] VITALS: BP 120/80
[2017-03-22 06:08] LABS: GLUCOMETER DEV NAME(LOC) 3EC; GLUCOSE,POINT OF CARE 117 MG/DL (70-110)
[2017-03-22] MEDS: MetFORMIN HCL 500 MG TABLET PO SCH ×2 (06:49→17:54)
[2017-03-22 08:00] VITALS: BP 118/63
[2017-03-22] MEDS: CARVEDILOL 3.125 MG TABLET PO SCH (08:19)
[2017-03-22] MEDS: DOCUSATE SODIUM 100 MG CAPSULE PO SCH (08:19)
[2017-03-22] MEDS: ASENAPINE 10 MG SUBLINGUAL TABLET SL SCH ×2 (08:19→20:47)
[2017-03-22] MEDS: OMEPRAZOLE 20 MG CAPSULE PO SCH (08:19)
[2017-03-22] MEDS: ASPIRIN 81 MG EC TABLET PO SCH (08:19)
[2017-03-22] MEDS: CHOLECALCIFEROL (VIT D3) 1,000 UNITS TABLET PO SCH (08:19)
[2017-03-22] MEDS: SODIUM CHLORIDE 0.65% 44 ML NASAL SPRAY NASAL SCH ×3 (08:24→16:33)
[2017-03-22] MEDS: MESALAMINE 400 MG DR CAPSULE PO SCH (08:25)
[2017-03-22] MEDS: DIVALPROEX SODIUM 500 MG ER TABLET PO SCH ×2 (09:00→17:00)
[2017-03-22] MEDS: FUROSEMIDE 20 MG TABLET PO SCH (09:00)
[2017-03-22] MEDS: HYDROCORTISONE 1% 30 GM CREAM TP SCH ×2 (10:36→16:34)
[2017-03-22 16:30] VITALS: BP 117/83
[2017-03-22 17:00] VITALS: BP 121/81
[2017-03-22 17:58] LABS: GLUCOMETER DEV NAME(LOC) 3EC; GLUCOSE,POINT OF CARE 152 MG/DL (70-110)
[2017-03-23 00:40] VITALS: BP 112/58
[2017-03-23] MEDS: IBUPROFEN 600 MG TABLET PO PRN ×2 (00:50→08:15)
[2017-03-23 07:02] LABS: GLUCOMETER DEV NAME(LOC) 3EC; GLUCOSE,POINT OF CARE 142 MG/DL (70-110)
[2017-03-23] MEDS: MetFORMIN HCL 500 MG TABLET PO SCH ×2 (07:14→17:07)
[2017-03-23 07:37] LABS: BASOPHILS % (AUTO) 0.4 % (0.0-2.0); EOSINOPHILS % (AUTO) 3.5 % (1.0-6.0); HEMATOCRIT 40.2 % (36-46); HEMOGLOBIN 13.6 g/dL (12.0-16.0); LYMPHOCYTES # (AUTO) 1.4 K/uL (1.0-4.8); LYMPHOCYTES % (AUTO) 22.5 % (22.0-44.0); MEAN CORPUSCULAR HGB CONC 33.8 G/dL (31.0-37.0); MEAN CORPUSCULAR VOLUME 95 fL (80-100); MONOCYTES # (AUTO) 0.9 K/uL (0.1-1.0); MONOCYTES % (AUTO) 14.2 % (2.0-9.0); NEUTROPHILS # (AUTO) 3.7 K/uL (1.8-7.7); NEUTROPHILS % (AUTO) 59.4 % (40.0-70.0); PLATELET COUNT (AUTO) 212 K/uL (150-450); RED BLOOD CELL COUNT(AUTO) 4.25 MIL/uL (4.00-5.20); RED CELL DISTRIBUTION WIDTH 12.8 % (11.5-14.5)
[2017-03-23 07:55] LABS: ALANINE AMINOTRANSFERASE 24 U/L (12-78); ALKALINE PHOSPHATASE 72 U/L (46-116); ANION GAP 5 mmol/L (8-16); ASPARTATE AMINOTRANSFERASE 14 U/L (15-37); BILIRUBIN,TOTAL 0.4 mg/dL (0.1-1.0); CALCIUM, TOTAL 8.6 mg/dL (8.8-10.5); CARBON DIOXIDE 31 mmol/L (22-29); CHLORIDE 104 mmol/L (98-107); CREATININE 0.91 mg/dL (0.60-1.30); GLOMERULAR FILTR. RATE CALC > 60 mL/min (>60); GLUCOSE,RANDOM 125 mg/dL (70-110); POTASSIUM 4.3 mmol/L (3.5-5.1); SODIUM SERUM 140 mmol/L (136-145); TOTAL PROTEIN, SERUM 7.8 g/dL (6.4-8.2); UREA NITROGEN, BLOOD 22 mg/dL (7-18)
[2017-03-23 08:10] VITALS: BP 136/73
[2017-03-23 08:11] LABS: VALPROIC ACID < 3 mcg/mL (50-100)
[2017-03-23] MEDS: LORazepam 2 MG TABLET PO PRN (08:11)
[2017-03-23] MEDS: DOCUSATE SODIUM 100 MG CAPSULE PO SCH (08:14)
[2017-03-23] MEDS: FUROSEMIDE 20 MG TABLET PO SCH (08:15)
[2017-03-23] MEDS: MESALAMINE 400 MG DR CAPSULE PO SCH (08:15)
[2017-03-23] MEDS: CHOLECALCIFEROL (VIT D3) 1,000 UNITS TABLET PO SCH (08:15)
[2017-03-23] MEDS: ASPIRIN 81 MG EC TABLET PO SCH (08:15)
[2017-03-23] MEDS: CARVEDILOL 3.125 MG TABLET PO SCH (08:15)
[2017-03-23] MEDS: OMEPRAZOLE 20 MG CAPSULE PO SCH (08:15)
[2017-03-23] MEDS: SODIUM CHLORIDE 0.65% 44 ML NASAL SPRAY NASAL SCH ×3 (08:16→17:07)
[2017-03-23] MEDS: DIVALPROEX SODIUM 500 MG ER TABLET PO SCH (09:00)
[2017-03-23] MEDS: ASENAPINE 10 MG SUBLINGUAL TABLET SL SCH ×2 (09:11→20:32)
[2017-03-23] MEDS: HYDROCORTISONE 1% 30 GM CREAM TP SCH ×2 (09:11→17:07)
[2017-03-23] MEDS ORDERED: ARIPiprazole ER SUSPENSION 400 MG PRE-FILLED DUAL CHAMBER SYRINGE IM SCH (10:15)
[2017-03-23 14:17] VITALS: BP 138/81
[2017-03-23 16:00] VITALS: BP 148/80
[2017-03-23] MEDS: VALPROIC ACID 250 MG CAPSULE PO SCH (17:08)
[2017-03-23 17:28] LABS: GLUCOMETER DEV NAME(LOC) 3EC; GLUCOSE,POINT OF CARE 135 MG/DL (70-110)
[2017-03-24 01:45] VITALS: BP 144/86
[2017-03-24] MEDS: IBUPROFEN 600 MG TABLET PO PRN ×2 (01:48→08:23)
[2017-03-24] MEDS: LORazepam 2 MG TABLET PO PRN (01:48)
[2017-03-24 06:12] LABS: GLUCOMETER DEV NAME(LOC) 3EC; GLUCOSE,POINT OF CARE 154 MG/DL (70-110)
[2017-03-24] MEDS: MetFORMIN HCL 500 MG TABLET PO SCH (07:06)
[2017-03-24] MEDS: DOCUSATE SODIUM 100 MG CAPSULE PO SCH (08:21)
[2017-03-24] MEDS: MESALAMINE 400 MG DR CAPSULE PO SCH (08:22)
[2017-03-24] MEDS: OMEPRAZOLE 20 MG CAPSULE PO SCH (08:22)
[2017-03-24] MEDS: ASENAPINE 10 MG SUBLINGUAL TABLET SL SCH (08:22)
[2017-03-24] MEDS: CARVEDILOL 3.125 MG TABLET PO SCH (08:22)
[2017-03-24] MEDS: CHOLECALCIFEROL (VIT D3) 1,000 UNITS TABLET PO SCH (08:22)
[2017-03-24] MEDS: VALPROIC ACID 250 MG CAPSULE PO SCH ×2 (08:22→09:00)
[2017-03-24] MEDS: ASPIRIN 81 MG EC TABLET PO SCH (08:22)
[2017-03-24] MEDS: SODIUM CHLORIDE 0.65% 44 ML NASAL SPRAY NASAL SCH (08:26)
[2017-03-24] MEDS: FUROSEMIDE 20 MG TABLET PO SCH (09:00)
[2017-03-24] MEDS: HYDROCORTISONE 1% 30 GM CREAM TP SCH (09:05)
[2017-03-24 09:20] VITALS: BP 153/83
[2017-03-24] MEDS ORDERED: ARIP400S3 IM (10:40)
[2017-03-24] MEDS ORDERED: ASEN10TA8 SL (10:40)
[2017-03-24] MEDS ORDERED: VALP250 PO (10:40)
[2017-03-24] MEDS ORDERED: SODI44SP18 NASAL (10:49)
[2017-03-24] MEDS ORDERED: FURO20 PO (10:49)
[2017-03-24] MEDS ORDERED: HYDR28.45 TP (10:49)
== END 2017-03-24 11:20 | disposition home or self-care (01) | DRG 885 ==
LOC: EMS 13:50 → 3EC 03-01 01:52
PROVIDERS: ADMIT Psychiatry & Neurology Child & Adolescent Psychiatry; ATTEND Psychiatry & Neurology Child & Adolescent Psychiatry
PROC: 5A09557 Assistance with Respiratory Ventilation, Greater than 96 Consecutive Hours, Continuous Positive Airway Pressure (ICD-10-PCS; principal; 2017-03-01)
DX: F25.0 Schizoaffective disorder, bipolar type (principal); E11.9 Type 2 diabetes mellitus without complications; E66.01 Morbid (severe) obesity due to excess calories; I11.0 Hypertensive heart disease with heart failure; I50.9 Heart failure, unspecified; Z68.43 Body mass index [BMI] 50.0-59.9, adult; E55.9 Vitamin D deficiency, unspecified; F17.210 Nicotine dependence, cigarettes, uncomplicated; F22 Delusional disorders; F41.9 Anxiety disorder, unspecified; G47.00 Insomnia, unspecified; G47.33 Obstructive sleep apnea (adult) (pediatric); I87.8 Other specified disorders of veins; J44.9 Chronic obstructive pulmonary disease, unspecified; K21.9 Gastro-esophageal reflux disease without esophagitis; K64.4 Residual hemorrhoidal skin tags; K59.00 Constipation, unspecified; M79.89 Other specified soft tissue disorders; L20.9 Atopic dermatitis, unspecified; R51 Headache; Z59.0 Homelessness; Z91.19 Patient's noncompliance with other medical treatment and regimen; Z71.6 Tobacco abuse counseling; Z91.041 Radiographic dye allergy status
CPT/HCPCS: 82948; 82962; 87081; 93005; 94660; 96372; 99285; G0480; J0401; J1200; J1630; J2060; J3535

== ENCOUNTER 2017-03-29 02:51 | Emergency (ER) | payer MEDICARE, OTHER ==
[~2017-03-29] VITALS: Ht 165.1 cm; Wt 113.6 kg
[~2017-03-29 02:51] MED LIST changes: +ARIP400S3 IM; +ASEN10TA8 SL; -ASEN5TAB6 SL; -CEFA2PLA9 IVP; +HYDR28.45 TP; -LORA0.5T2 PO; -NYST15PO3 TP; +SODI44SP18 NASAL; -TERB30CR TP; +VALP250 PO
[2017-03-29 03:29] LABS: BASOPHILS # (AUTO) 0.02 K/uL (0.00-0.20); BASOPHILS % (AUTO) 0.3 % (0.0-2.0); EOSINOPHILS # (AUTO) 0.35 K/uL (0.00-0.70); EOSINOPHILS % (AUTO) 4.74 % (1.0-6.0); HEMATOCRIT 41.9 % (36-46); HEMOGLOBIN 13.8 g/dL (12.0-16.0); LYMPHOCYTES # (AUTO) 1.7 K/uL (1.0-4.8); LYMPHOCYTES % (AUTO) 22.4 % (22.0-44.0); MEAN CORPUSCULAR HEMOGLOBIN 31.5 pg (26.0-34.0); MEAN CORPUSCULAR HGB CONC 32.8 G/dL (31.0-37.0); MEAN CORPUSCULAR VOLUME 96 fL (80-100); MONOCYTES # (AUTO) 0.6 K/uL (0.1-1.0); MONOCYTES % (AUTO) 8.5 % (2.0-9.0); NEUTROPHILS # (AUTO) 4.8 K/uL (1.8-7.7); PLATELET COUNT (AUTO) 245 K/uL (150-450); RED BLOOD CELL COUNT(AUTO) 4.37 MIL/uL (4.00-5.20); RED CELL DISTRIBUTION WIDTH 12.8 % (11.5-14.5)
[2017-03-29 03:41] LABS: ANION GAP 7 mmol/L (8-16); CALCIUM, TOTAL 8.9 mg/dL (8.8-10.5); CARBON DIOXIDE 33 mmol/L (22-29); CHLORIDE 102 mmol/L (98-107); CREATININE 0.83 mg/dL (0.60-1.30); GLOMERULAR FILTR. RATE CALC > 60 mL/min (>60); GLUCOSE,RANDOM 126 mg/dL (70-110); SODIUM SERUM 142 mmol/L (136-145); UREA NITROGEN, BLOOD 27 mg/dL (7-18)
[2017-03-29 03:47] LABS: ALANINE AMINOTRANSFERASE 23 U/L (12-78); ALKALINE PHOSPHATASE 79 U/L (46-116); ASPARTATE AMINOTRANSFERASE 14 U/L (15-37); BILIRUBIN,TOTAL 0.3 mg/dL (0.1-1.0); TOTAL PROTEIN, SERUM 7.7 g/dL (6.4-8.2)
[2017-03-29 07:32] LABS: GLUCOSE,POINT OF CARE 141 MG/DL (70-110)
[2017-03-29] MEDS ORDERED: IBUPROFEN 600 MG TABLET PO ONE (08:00)
[2017-03-29 09:09] VITALS: BP 115/61
== END 2017-03-29 09:12 | disposition home or self-care (01) ==
LOC: EMS 02:53
DX: F41.9 Anxiety disorder, unspecified (principal); F31.9 Bipolar disorder, unspecified; F17.210 Nicotine dependence, cigarettes, uncomplicated; Z88.8 Allergy status to other drugs, medicaments and biological substances; Z79.82 Long term (current) use of aspirin; Z79.899 Other long term (current) drug therapy
CPT/HCPCS: 36415; 80053; 82962; 85025; 99284; G0480

== ENCOUNTER 2017-11-08 14:48 | Emergency (ER) | payer MEDICARE, OTHER ==
[~2017-11-08] VITALS: Ht 154.9 cm; Wt 118.2 kg
[~2017-11-08 14:48] MED LIST changes: -METF500T4 PO; +METF500T6 PO
[2017-11-08 15:14] LABS: GLUCOSE,POINT OF CARE 137 MG/DL (70-110)
[2017-11-08 19:25] LABS: BASOPHILS % (AUTO) 0.6 % (0.0-2.0); EOSINOPHILS % (AUTO) 4.6 % (1.0-6.0); HEMATOCRIT 45.2 % (36-46); HEMOGLOBIN 15.1 g/dL (12.0-16.0); MEAN CORPUSCULAR HEMOGLOBIN 31.7 pg (26.0-34.0); MEAN CORPUSCULAR HGB CONC 33.5 G/dL (31.0-37.0); MEAN CORPUSCULAR VOLUME 95 fL (80-100); MONOCYTES # (AUTO) 0.9 K/uL (0.1-1.0); MONOCYTES % (AUTO) 11.9 % (2.0-9.0); NEUTROPHILS # (AUTO) 4.1 K/uL (1.8-7.7); NEUTROPHILS % (AUTO) 55.9 % (40.0-70.0); PLATELET COUNT (AUTO) 216 K/uL (150-450); RED BLOOD CELL COUNT(AUTO) 4.77 MIL/uL (4.00-5.20); RED CELL DISTRIBUTION WIDTH 12.9 % (11.5-14.5)
[2017-11-08 19:35] LABS: ANION GAP 4 mmol/L (8-16); CALCIUM, TOTAL 8.9 mg/dL (8.8-10.5); CARBON DIOXIDE 33 mmol/L (22-29); CHLORIDE 105 mmol/L (98-107); CREATININE 0.91 mg/dL (0.60-1.30); GLOMERULAR FILTR. RATE CALC > 60 mL/min (>60); GLUCOSE,RANDOM 109 mg/dL (70-110); POTASSIUM 3.8 mmol/L (3.5-5.1); SODIUM SERUM 142 mmol/L (136-145); UREA NITROGEN, BLOOD 17 mg/dL (7-18)
[2017-11-08 19:41] LABS: ALANINE AMINOTRANSFERASE 22 U/L (12-78); ALBUMIN 3.1 g/dL (3.4-5.0); ALKALINE PHOSPHATASE 75 U/L (46-116); ASPARTATE AMINOTRANSFERASE 23 U/L (15-37); BILIRUBIN,TOTAL 0.5 mg/dL (0.1-1.0); TOTAL PROTEIN, SERUM 7.8 g/dL (6.4-8.2)
[2017-11-08 20:22] LABS: B-TYPE NATRIURETIC PEPTIDE 37 pg/mL (0-100)
[2017-11-08 20:30] VITALS: BP 119/72
[2017-11-08] MEDS ORDERED: CefTRIAXone SODIUM 1 GM/VIAL IV ONE (21:45)
[2017-11-08] MEDS: CefTRIAXone SODIUM 1 GM in DEXTROSE 5%-WATER 10 ML IV ONE (22:32)
== END 2017-11-08 23:19 | disposition home or self-care (01) ==
LOC: EMS 14:49
DX: I87.2 Venous insufficiency (chronic) (peripheral) (principal); L03.116 Cellulitis of left lower limb; L03.115 Cellulitis of right lower limb; F17.210 Nicotine dependence, cigarettes, uncomplicated; F31.9 Bipolar disorder, unspecified; Z88.8 Allergy status to other drugs, medicaments and biological substances; Z71.6 Tobacco abuse counseling
CPT/HCPCS: 36415; 71046; 80053; 82962; 83880; 84484; 85025; 93005; 96374; 99285; 99406; J0696; J7060

== ENCOUNTER 2018-11-14 18:11 | Emergency (ER) | payer OTHER, MEDICAID ==
[~2018-11-14] VITALS: Ht 157.5 cm; Wt 113.6 kg
[2018-11-14 20:29] LABS: ALANINE AMINOTRANSFERASE 11 U/L (12-78); ALBUMIN 3.4 g/dL (3.4-5.0); ALKALINE PHOSPHATASE 66 U/L (46-116); ANION GAP 9 mmol/L (8-16); ASPARTATE AMINOTRANSFERASE 13 U/L (15-37); BILIRUBIN,TOTAL 0.7 mg/dL (0.1-1.0); CALCIUM, TOTAL 8.9 mg/dL (8.8-10.5); CARBON DIOXIDE 28 mmol/L (22-29); CHLORIDE 104 mmol/L (98-107); CREATININE 1.03 mg/dL (0.60-1.30); GLOMERULAR FILTR. RATE CALC 53 mL/min (>60); GLUCOSE,RANDOM 171 mg/dL (70-110); SODIUM SERUM 141 mmol/L (136-145); TOTAL PROTEIN, SERUM 7.6 g/dL (6.4-8.2); UREA NITROGEN, BLOOD 11 mg/dL (7-18)
[2018-11-14 20:35] LABS: BASOPHILS % (AUTO) 0.4 % (0.0-2.0); EOSINOPHILS % (AUTO) 1.3 % (1.0-6.0); HEMATOCRIT 54.8 % (36-46); HEMOGLOBIN 18.1 g/dL (12.0-16.0); LYMPHOCYTES # (AUTO) 1.5 K/uL (1.0-4.8); MEAN CORPUSCULAR HEMOGLOBIN 32.1 pg (26.0-34.0); MEAN CORPUSCULAR VOLUME 97 fL (80-100); MONOCYTES % (AUTO) 10.1 % (2.0-9.0); NEUTROPHILS # (AUTO) 6.9 K/uL (1.8-7.7); NEUTROPHILS % (AUTO) 72.2 % (40.0-70.0); PLATELET COUNT (AUTO) 208 K/uL (150-450); POTASSIUM 2.8 mmol/L (3.5-5.1); RED BLOOD CELL COUNT(AUTO) 5.64 MIL/uL (4.00-5.20); RED CELL DISTRIBUTION WIDTH 13.7 % (11.5-14.5)
[2018-11-14] MEDS ORDERED: POTASSIUM CHLORIDE 20 MEQ ER TABLET PO ONE (21:15)
[2018-11-14] MEDS ORDERED: POTASSIUM CHL 20 MEQ/0.9% NS 1,000 ML IV ONE (21:15)
[2018-11-15] MEDS ORDERED: SODIUM CHLORIDE 0.9% 1,000 ML IV ONE (00:15)
[2018-11-15 01:01] VITALS: BP 136/80
== END 2018-11-15 01:54 | disposition short-term general hospital (02) ==
LOC: EMS 18:16
DX: F32.9 Major depressive disorder, single episode, unspecified (principal); E87.6 Hypokalemia; R62.7 Adult failure to thrive; R60.0 Localized edema; F31.9 Bipolar disorder, unspecified; I50.9 Heart failure, unspecified; E11.9 Type 2 diabetes mellitus without complications; F17.210 Nicotine dependence, cigarettes, uncomplicated; Z68.42 Body mass index [BMI] 45.0-49.9, adult; Z90.49 Acquired absence of other specified parts of digestive tract; Z88.8 Allergy status to other drugs, medicaments and biological substances
CPT/HCPCS: 36415; 71045; 80053; 82962; 83735; 84484; 85025; 93005; 93970; 96365; 99285; G0480; J3480; J7030